=== PATIENT | female | born 1940 | race Caucasian/White ===

== ENCOUNTER 2018-04-11 11:22 | Emergency (ER) | payer MEDICARE ==
[~2018-04-11] VITALS: Ht 160 cm; Wt 94.3 kg
[~2018-04-11 11:22] MED LIST: ASPIR 8181 MG PO; BACTRIM DS TAB1 EACH PO; CALCIUM500 M1; CLONAZEPAM1 MG PO; DIOVAN160 MG PO; DIOVAN40 MG PO; ISOSORBIDE MONO30 MG PO; LASIX40 MG PO; LEVOTHYROXINE112 MCG PO; MAGNESIUM27 MG; METOPROLOL SUCC25 MG PO; PANTOPRAZOLE SO40 MG PO; POTASSIUM CHLO20 ME1 PO; SYNTHROID75 MCG PO; TYLENOL # 31 EA PO; ULTRAM50 MG PO
[2018-04-11] MEDS ORDERED: TRAMADOL HCL 50 MG TAB PO ONE (11:45)
== END 2018-04-11 14:06 | disposition home or self-care (01) ==
LOC: ER 11:22
DX: M79.652 Pain in left thigh (principal); S76.912A Strain of unspecified muscles, fascia and tendons at thigh level, left thigh, initial encounter; I10 Essential (primary) hypertension; K21.9 Gastro-esophageal reflux disease without esophagitis; G89.29 Other chronic pain; Z95.1 Presence of aortocoronary bypass graft
CPT/HCPCS: 93971; 99282

== ENCOUNTER 2019-03-28 05:10 | Observation (INO) | payer MEDICARE ==
[~2019-03-28] VITALS: Ht 160 cm; Wt 103.0 kg
--- OUTSIDE RECORDS SUMMARY | 2019-03-28 05:12 | XMS REPORT | Summary of Care ---
Author Author [facility] - Health Organization [facility] - Health Address Unknown Phone Unavailable Care Team Providers Care Tower Loader Operator Name Role Phone Alyssa Cullen MD PCP Encounter Details Care Team Description Date Type Department Doctor Unassigned, [place] [address] [place] [address] 11/05/2018 Patient Secure [facility] Messages Msg [address] [place] [phone] Allergies Comments Active Allergy Reactions Severity Noted Date Dry Mouth Lisinopril Other - See High 05/10/2018 comments documented as of this encounter (statuses as of 12/07/2018) Medications End Date Status Medication Sig Dispensed Refills Start Date Active gabapentin 300 mg capsule Take 600 mg 5 by mouth at 8 bedtime. Active pantoprazole 40 mg EC TK 1 T PO 3 tablet ONCE D 8 Active metoprolol succinate XL TK 1/2 T PO 3 25 mg 24 hr tablet ONCE D 8 Active isosorbide mononitrate 60 TK 1 T PO QD 3 mg 24 hr tablet 8 Active furosemide 40 mg tablet TK 1 T PO D 3 8 Active calcitriol 0.25 mcg TK 2 CS PO QD 0 capsule 8 Active aspirin (ASPIRIN LOW Take 81 mg by 0 DOSE) 81 mg EC tablet mouth daily. Active valsartan (DIOVAN) 40 mg Take 40 mg by 0 tablet mouth daily. Active calcium carbonate/vitamin Take by 0 D2 ([id number]-E ORAL) mouth. Active losartan potassium Take by 0 (LOSARTAN mouth. ORAL)Indications: Essential hypertension Active promethazine-dextromethor Take 5 mL by 0 mccann 6.25-15 mg/5 mL mouth 4 syrup (four) times daily as needed for Cough. Active methylPREDNISolone Take by 21 Each 0 (MEDROL, CLARISA,) 4 mg mouth 9 tabletsIndications: SEE-INSTRUCTI Bronchitis ONS. follow package directions Active rOPINIRole 0.5 mg Take 1 tablet 90 tablet 1 tabletIndications: by mouth at 9 Restless leg syndrome bedtime. Active VITAMIN K2 ORAL Take 1 tablet 0 by mouth daily. Active levothyroxine 112 mcg TAKE 1 TABLET 60 tablet 0 tablet BY MOUTH 9 EVERY MORNING ON AN EMPTY STOMACH WITH WATER, AND WAIT 1 HOUR BEFORE EATING OR TAKING OTHER MEDS documented as of this encounter (statuses as of 12/07/2018) Active Problems Not on filedocumented as of this encounter (statuses as of 12/07/2018) Social History Date Tobacco Use Types Packs/Day Years Used Never Smoker Smokeless Tobacco: Never Used Drinks/Week oz/Week Comments Alcohol Use Yes Sex Assigned at Date Recorded Not on file Industry Job Start Date Occupation Not on file Not on file Not on file Travel End Travel History Travel Start No recent travel history available. documented as of this encounter Last Filed Vital Signs Not on filedocumented in this encounter Plan of Treatment Health Maintenance Due Date Last Done Comments DTaP,Tdap,and Td Vaccines [birth year]/11/1959 (1 - Tdap) Zoster Recombinant 1990 Vaccine (SHINGRIX) (1 of 2) Medicare Wellness Visit 2005 Osteoporosis Screening 2005 PNEUMOCOCCAL VACCINES 65+ 2005 (1 of 2 - PCV13) INFLUENZA VACCINE 01/05/2019 documented as of this encounter Results Not on filedocumented in this encounter Insurance Type Payer Benefit Subscriber ID Effective Phone Address Plan / Dates Group Medicare Adv O [facility] [id number] 2018-P MANAGED MEDICARE MEDICARE resent COMPLETE documented as of this encounter
--- OUTSIDE RECORDS SUMMARY | 2019-03-28 05:12 | XMS REPORT | Summary of Care ---
Author Author [facility] - Health Organization [facility] - Health Address Unknown Phone Unavailable Care Team Providers Care Motorcycle Subassembler Name Role Phone Alyssa Cullen MD PCP Reason for Visit * Reason Comments Refill Request Encounter Details Care Team Description Date Type Department Alyssa Cullen MD [address] [place] [phone] Refill Request 12/01/2018 Refill [facility], [address] [place] [address] Allergies Comments Active Allergy Reactions Severity Noted Date Dry Mouth Lisinopril Other - See High 05/10/2018 comments documented as of this encounter (statuses as of 12/02/2018) Medications End Date Status Medication Sig Dispensed [...] Active calcium carbonate/vitamin Take by 0 D2 ([id number]-C ORAL) mouth. Active losartan potassium Take by 0 (LOSARTAN mouth. ORAL)Indications: Essential hypertension Active promethazine-dextromethor Take 5 mL by 0 cmcann 6.25-15 mg/5 mL mouth 4 syrup (four) [...] HOUR BEFORE EATING OR TAKING OTHER MEDS Active losartan 25 mg Take 1 tablet 30 tablet 1 tabletIndications: by mouth 9 Essential hypertension daily. Active POTASSIUM CHLORIDE 10 mEq TAKE 1 TABLET 30 tablet 0 CR tablet BY MOUTH 9 EVERY DAY 12/01/2018 Discontinued POTASSIUM CHLORIDE 10 mEq TAKE 1 TABLET 30 tablet 0 CR tablet BY MOUTH 9 EVERY DAY documented as of this encounter (statuses as of 12/02/2018) Active Problems Not on filedocumented as of this encounter (statuses as of 12/02/2018) Social History Date Tobacco Use Types Packs/Day [...] Address Plan / Dates Group Medicare Adv [facility] [id number] 2018-P MANAGED MEDICARE MEDICARE resent COMPLETE documented as of this encounter
--- OUTSIDE RECORDS SUMMARY | 2019-03-28 05:12 | XMS REPORT | Summary of Care ---
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 P rocedures CONSULT/REFERRAL CARDIOLOGY Reason for Visit * Reason Comments Referral/consult Encounter Details Care Team Description Date Type Department Alyssa Cullen MD [address] [place] [phone] Referral/consult 12/18/2018 Telephone [facility], [address] [phone] Allergies Comments Active Allergy Reactions Severity Noted Date Dry Mouth Lisinopril Other - See High 05/10/2018 comments documented as of this encounter (statuses as of 12/18/2018) Medications End Date Status Medication Sig Dispensed [...] Active calcium carbonate/vitamin Take by 0 D2 ([id number]-L ORAL) mouth. Active losartan potassium Take by [...] as of this encounter (statuses as of 12/18/2018) Active Problems Not on filedocumented as of this encounter (statuses as of 12/18/2018) Social History Date Tobacco Use Types Packs/Day [...] filedocumented in this encounter Plan of Treatment Care Team Description Date Type Specialty Alyssa Cullen MD [address] [address] [phone] 01/10/2019 Office Visit Family Medicine Health Maintenance Due Date Last Done Comments DTaP,Tdap,and Td Vaccines 12/11/1959 (1 - Tdap) Zoster Recombinant 1990 Vaccine (SHINGRIX) (1 of 2) Medicare Wellness Visit 2005 Osteoporosis Screening 2005 PNEUMOCOCCAL VACCINES 65+ 2005 (1 of 2 - PCV13) INFLUENZA VACCINE 01/05/2019 documented as of this encounter Results Not on filedocumented in this encounter Visit Diagnoses Diagnosis Atherosclerosis of [place] coronary artery with angina pectoris, 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
--- OUTSIDE RECORDS SUMMARY | 2019-03-28 05:12 | XMS REPORT ---
Author Author [facility] Address Unknown Phone Unavailable Care Team Providers Care Hedis Registered Nurse Rn Name Role Phone Unavailable Unavailable Problems This patient has no known problems. Allergies, Adverse Reactions, Alerts This patient has no known allergies or adverse reactions. Medications This patient has no known medications.
--- OUTSIDE RECORDS SUMMARY | 2019-03-28 05:12 | XMS REPORT | Summary of Care ---
Author Author [facility] - Health Organization [facility] - Health Address Unknown Phone Unavailable Care Team Providers Care Assistant District Attorney Name Role Phone Alyssa Cullen MD PCP Reason for Visit * Reason Comments Refill Request Encounter Details Care Team Description Date Type Department Alyssa Cullen MD [address] [place] [phone] Refill Request 12/24/2018 Telephone [facility], [address] [place] [address] Allergies Comments Active Allergy Reactions Severity Noted Date Dry Mouth Lisinopril Other - See High 05/10/2018 comments documented as of this encounter (statuses as of 12/24/2018) Medications End Date Status Medication Sig Dispensed [...] Active calcium carbonate/vitamin Take by 0 D2 ([id number]-B ORAL) mouth. Active losartan potassium Take by [...] 1 tablet 0 by mouth daily. Active losartan 25 mg Take 1 tablet 30 tablet 1 tabletIndications: by mouth 9 Essential hypertension daily. Active POTASSIUM CHLORIDE 10 mEq TAKE 1 TABLET 30 tablet 0 CR tablet BY MOUTH 9 EVERY DAY Active levothyroxine 112 mcg TAKE 1 TABLET 90 tablet 0 tablet BY MOUTH 9 EVERY MORNING ON AN EMPTY STOMACH WITH WATER, AND WAIT 1 HOUR BEFORE EATING OR TAKING OTHER MEDS 12/24/2018 Discontinued levothyroxine 112 mcg TAKE 1 TABLET 60 tablet 0 tablet BY MOUTH 9 EVERY MORNING ON AN EMPTY STOMACH WITH WATER, AND WAIT 1 HOUR BEFORE EATING OR TAKING OTHER MEDS documented as of this encounter (statuses as of 12/24/2018) Active Problems Not on filedocumented as of this encounter (statuses as of 12/24/2018) Social History Date Tobacco Use Types Packs/Day [...] Description Date Type Specialty Alyssa Cullen MD [address] [place] [phone] 01/10/2019 Office Visit Family Medicine Health Maintenance Due Date Last Done Comments DTaP,Tdap,and Td Vaccines 12/11/1959 (1 - Tdap) Zoster Recombinant 1990 Vaccine (SHINGRIX) (1 of 2) Medicare Wellness Visit 2005 Osteoporosis Screening 2005 PNEUMOCOCCAL VACCINES 65+ 2005 (1 of 2 - PCV13) INFLUENZA VACCINE (#1) 2019 documented as of this encounter Results Not on filedocumented in this encounter Insurance Type Payer Benefit Subscriber ID Effective Phone Address Plan / Dates Group Medicare Adv O [facility] - [facility] [id number] 2018-P MANAGED MEDICARE MEDICARE resent COMPLETE documented as of this encounter
--- OUTSIDE RECORDS SUMMARY | 2019-03-28 05:13 | XMS REPORT | Summary of Care ---
Author Author [facility] Address Unknown Phone Unavailable Care Team Providers Care Assembler [place] [employer] [place] Name Role Phone Alyssa Cullen MD PCP Reason for Visit * Reason Comments Pain Encounter Details Care Team Description Date Type Department Alyssa Cullen MD [address] [facility] [address] [place] [address] [phone] Restless leg syndrome (Primary Dx); Motion sickness, initial encounter; Diarrhea, unspecified type; Acquired hypothyroidism 01/10/2019 Office Visit [facility] [address] [facility] [address] [place] [address] Allergies Comments Active Allergy Reactions Severity Noted Date Dry Mouth Lisinopril Other - See High 05/10/2018 comments documented as of this encounter (statuses as of 01/12/2019) Medications End Date Status Medication Sig Dispensed [...] Active calcium carbonate/vitamin Take by 0 D2 ([id number]-T ORAL) mouth. Active losartan potassium Take by 0 (LOSARTAN mouth. ORAL)Indications: Essential hypertension Active promethazine-dextromethor Take 5 mL by 0 mccann 6.25-15 mg/5 mL mouth 4 syrup (four) times daily as needed for Cough. Active methylPREDNISolone Take by 21 Each 0 (MEDROL, CLARISA,) 4 mg mouth 9 tabletsIndications: SEE-INSTRUCTI Bronchitis ONS. follow package directions Active VITAMIN K2 ORAL Take 1 tablet 0 by mouth daily. Active losartan 25 mg Take 1 tablet 30 tablet 1 tabletIndications: by mouth 9 Essential hypertension daily. Active levothyroxine 112 mcg TAKE 1 TABLET 90 tablet 0 tablet BY MOUTH 9 EVERY MORNING ON AN EMPTY STOMACH WITH WATER, AND WAIT 1 HOUR BEFORE EATING OR TAKING OTHER MEDS Active POTASSIUM CHLORIDE 10 mEq TAKE 1 TABLET 30 tablet 0 CR tablet BY MOUTH 9 EVERY DAY Active ergocalciferol, vitamin Take 4,000 0 D2, (VITAMIN D ORAL) Units by mouth daily. Active scopolamine transdermal 1 Apply 1 Patch 4 Patch 0 mg over 3 days to area(s) 9 patchIndications: Motion every 72 sickness, initial (seventy-two) encounter hours. Active rOPINIRole 0.5 mg 2 tablets 1-3 90 tablet 0 tabletIndications: hrs prior to 9 Restless leg syndrome bedtime x 7 days then if needed can go up weekly by 0.5 mg until desired effect or she reaches 3 mg. Active imipramine 25 mg Take 1 tablet 30 tablet 2 tabletIndications: by mouth 9 Diarrhea, unspecified daily. type 01/10/2019 Discontinued rOPINIRole 0.5 mg Take 1 tablet 90 tablet 1 tabletIndications: by mouth at 9 Restless leg syndrome bedtime. documented as of this encounter (statuses as of 01/12/2019) Active Problems Not on filedocumented as of this encounter (statuses as of 01/12/2019) Social History Date Tobacco Use Types Packs/Day Years Used Never Smoker Smokeless Tobacco: Never Used Drinks/Week oz/Week Comments Alcohol Use Yes Sex Assigned at Date Recorded Not on file Industry Job Start Date Occupation Not on file Not on file Not on file Travel End Travel History Travel Start No recent travel history available. documented as of this encounter Last Filed Vital Signs Reading Time Taken Comments Vital Sign 134/82 01/10/2019 3:42 PM CDT Blood Pressure 64 01/10/2019 3:42 PM CDT Pulse - - Temperature - - Respiratory Rate 99% 01/10/2019 3:42 PM CDT Oxygen Saturation - - Inhaled Oxygen Concentration 103.1 kg (227 lb 3.2 oz) 01/10/2019 3:42 PM CDT Weight - - Height 42.58 09/17/2018 2:02 PM CDT Body Mass Index documented in this encounter Progress Notes * Alyssa Cullen MD - 01/10/2019 3:00 PM CDT Cc: Chief Complaint Patient presents with Pain Amaris Camargo is a 78 year old female. HPI She is going on a cruise in February and is requesting motion sickness pills. Patient states that for years she has had issues with on and off diarrhea . But lately she has had issues with random unprovoked episodes of diarrhea that she has no control over. In both ears she has had a constant swooshing sound for [address] Peterson stopped her calcitriol. she is now taking Calcium 1800 mg and vitamin D 4000 iu. Patient states that her calcium level is low. Patient states that chung ving bone and muscle achiness, slight better when she re-started her calcium sup plement. Check how much parathyroid she has left. Neuropathy pain comes and goes in degrees. ropiranole will help. Patient states she has a tightening of the throat. Makes it hard to move her jaw . She denies any shortness of breath. She has itching under her underarm. Patient states that has bumps and itching i n groin. Patient states on and off. Patient saw Dr. Vargas. She is setting her up for a Nuclear stress test and Ec hocardiogram. Stress test will be done after she returns from her cruise. Allergies Amaris is allergic to lisinopril. Medications Outpatient Medications Prior to Visit Medication Sig Dispense Refill ergocalciferol, vitamin D2, (VITAMIN D ORAL) Take 4,000 Units by mouth daily . POTASSIUM CHLORIDE 10 mEq CR tablet TAKE 1 TABLET BY MOUTH EVERY DAY 30 tabl et 0 levothyroxine 112 mcg tablet TAKE 1 TABLET BY MOUTH EVERY MORNING ON AN EMPT Y STOMACH WITH WATER, AND WAIT 1 HOUR BEFORE EATING OR TAKING OTHER MEDS 90 tabl et 0 losartan 25 mg tablet Take 1 tablet by mouth daily. 30 tablet 1 VITAMIN K2 ORAL Take 1 tablet by mouth daily. rOPINIRole 0.5 mg tablet Take 1 tablet by mouth at bedtime. 90 tablet 1 aspirin (ASPIRIN LOW DOSE) 81 mg EC tablet Take 81 mg by mouth daily. furosemide 40 mg tablet TK 1 T PO D 3 gabapentin 300 mg capsule Take 600 mg by mouth at bedtime. 5 isosorbide mononitrate 60 mg 24 hr tablet TK 1 T PO QD 3 metoprolol succinate XL 25 mg 24 hr tablet TK 1/2 T PO ONCE D 3 pantoprazole 40 mg EC tablet TK 1 T PO ONCE D 3 methylPREDNISolone (MEDROL, CLARISA,) 4 mg tablets Take by mouth SEE-INSTRUCTIO NS. follow package directions 21 Each 0 promethazine-dextromethorphan 6.25-15 mg/5 mL syrup Take 5 mL by mouth 4 (fo ur) times daily as needed for Cough. losartan potassium (LOSARTAN ORAL) Take by mouth. calcitriol 0.25 mcg capsule TK 2 CS PO QD 0 calcium carbonate/vitamin D2 ([id number]-A ORAL) Take by mouth. valsartan (DIOVAN) 40 mg tablet Take 40 mg by mouth daily. No facility-administered medications prior to visit. Current Outpatient Medications: ergocalciferol, vitamin D2, (VITAMIN D ORAL), Take 4,000 Units by mouth mag parekh, Disp: , Rfl: scopolamine transdermal 1 mg over 3 days patch, Apply 1 Patch to area(s) ev massiel 72 (seventy-two) hours., Disp: 4 Patch, Rfl: 0 POTASSIUM CHLORIDE 10 mEq CR tablet, TAKE 1 TABLET BY MOUTH EVERY DAY, Disp : 30 tablet, Rfl: 0 levothyroxine 112 mcg tablet, TAKE 1 TABLET BY MOUTH EVERY MORNING ON AN EM PTY STOMACH WITH WATER, AND WAIT 1 HOUR BEFORE EATING OR TAKING OTHER MEDS, Disp : 90 tablet, Rfl: 0 losartan 25 mg tablet, Take 1 tablet by mouth daily., Disp: 30 tablet, Rfl: 1 VITAMIN K2 ORAL, Take 1 tablet by mouth daily., Disp: , Rfl: rOPINIRole 0.5 mg tablet, Take 1 tablet by mouth at bedtime., Disp: 90 tabl et, Rfl: 1 aspirin (ASPIRIN LOW DOSE) 81 mg EC tablet, Take 81 mg by mouth daily., Dis p: , Rfl: furosemide 40 mg tablet, TK 1 T PO D, Disp: , Rfl: 3 gabapentin 300 mg capsule, Take 600 mg by mouth at bedtime., Disp: , Rfl: 5 isosorbide mononitrate 60 mg 24 hr tablet, TK 1 T PO QD, Disp: , Rfl: 3 metoprolol succinate XL 25 mg 24 hr tablet, TK 1/2 T PO ONCE D, Disp: , Rfl : 3 pantoprazole 40 mg EC tablet, TK 1 T PO ONCE D, Disp: , Rfl: 3 methylPREDNISolone (MEDROL, CLARISA,) 4 mg tablets, Take by mouth SEE-INSTRUCT IONS. follow package directions, Disp: 21 Each, Rfl: 0 promethazine-dextromethorphan 6.25-15 mg/5 mL syrup, Take 5 mL by mouth 4 ( four) times daily as needed for Cough., Disp: , Rfl: losartan potassium (LOSARTAN ORAL), Take by mouth., Disp: , Rfl: calcitriol 0.25 mcg capsule, TK 2 CS PO QD, Disp: , Rfl: 0 calcium carbonate/vitamin D2 ([id number]-331-T ORAL), Take by mouth., Disp: , Rfl: valsartan (DIOVAN) 40 mg tablet, Take 40 mg by mouth daily., Disp: , Rfl: Histories Past Medical History: Diagnosis Date B12 deficiency CHF (congestive heart failure) Coronary artery disease Diverticulosis Gallstones Heart murmur Hypertension Hypothyroid Insomnia Internal hemorrhoids Meniere's disease Past Surgical History: Procedure Laterality Date D&C AFTER DELIVERY THYROIDECTOMY Social History Socioeconomic History Marital status: Spouse name: Not on file Number of children: Not on file Years of education: Not on file Highest education level: Not on file Occupational History Not on file Social Needs Financial resource strain: Not on file Food insecurity: Worry: Not on file Inability: Not on file Transportation needs: Medical: Not on file Non-medical: Not on file Tobacco Use Smoking status: Never Smoker Smokeless tobacco: Never Used Substance and Sexual Activity Alcohol use: Yes Drug use: No Sexual activity: Never Lifestyle Physical activity: Days per week: Not on file Minutes per session: Not on file Stress: Not on file Relationships Social connections: Talks on phone: Not on file Gets together: Not on file Attends jain service: Not on file Active member of club or organization: Not on file Attends meetings of clubs or organizations: Not on file Relationship status: Not on file Intimate partner violence: Fear of current or ex partner: Not on file Emotionally abused: Not on file Physically abused: Not on file Forced sexual activity: Not on file Other Topics Concern Not on file Social History Narrative Not on file Family History Problem Relation Age of Onset Diabetes Mother Hypertension Mother Heart Mother TIA Depression Mother Hypertension Father Diabetes Father Heart Father Review of Systems Constitutional: Negative. Cardiovascular: Negative. Gastrointestinal: Positive for abdominal pain and diarrhea. Genitourinary: Negative. Musculoskeletal: Positive for arthralgias and myalgias. Negative for neck pain. Skin: Positive for rash. Neurological: Positive for numbness. Negative for headaches. Restless legs Psychiatric/Behavioral: Positive for sleep disturbance. Endocrine: Endocrine negative Vital Signs BP 134/82 (BP Location: Left arm, Patient Position: Sitting) | Pulse 64 | Wt 2 27 lb 3.2 oz (103.1 kg) | SpO2 99% | BMI 42.58 kg/m Physical Exam Constitutional: She appears well-developed and well-nourished. HENT: Right Ear: External ear normal. Left Ear: External ear normal. Mouth/Throat: Oropharynx is clear and moist. Eyes: Conjunctivae are normal. Neck: Neck supple. Cardiovascular: Normal rate, regular rhythm and normal heart sounds. Pulmonary/Chest: Effort normal and breath sounds normal. No respiratory distress . Musculoskeletal: Normal range of motion. Lymphadenopathy: She has no cervical adenopathy. Neurological: She is alert. Vitals reviewed. Assessment/Plan 1. Restless leg syndrome Will increase and maximize patients Ropinirole. If this doesn't help we may nee d to increase her gabapentin. - rOPINIRole 0.5 mg tablet; 2 tablets 1-3 hrs prior to bedtime x 7 days then if needed can go up weekly by 0.5 mg until desired effect or she reaches 3 mg. Dis pense: 90 tablet; Refill: 0 2. Motion sickness, initial encounter - scopolamine transdermal 1 mg over 3 days patch; Apply 1 Patch to area(s) every 72 (seventy-two) hours. Dispense: 4 Patch; Refill: 0 3. Diarrhea, unspecified type Will try patient on Imipramine for the diarrhea and will check her blood work to make sure her diarrhea is not metabolically induced. Review of her labs show t hat all her labs are essentially normal. - imipramine 25 mg tablet; Take 1 tablet by mouth daily. Dispense: 30 tablet; R efill: 2 - CBC WITH DIFFERENTIAL - COMP. METABOLIC PANEL (67227) - LIPASE 4. Acquired hypothyroidism In september her levels were in the hyperthyroid side which can cause diarrhea, repeat shows normal value. - FREE T4 - THYROID STIMULATING HORMONE This visit did not involve counseling and coordination that comprised more than 50% of the visit time. documented in this encounter Plan of Treatment Care Team Description Date Type Specialty Alyssa Cullen MD [address] [place] [address] [phone] 07/11/2019 Office Visit Family Medicine Health Maintenance Due Date Last Done Comments DTaP,Tdap,and Td Vaccines 12/11/1959 (1 - Tdap) Zoster Recombinant 1990 Vaccine (SHINGRIX) (1 of 2) Medicare Wellness Visit 2005 Osteoporosis Screening 2005 PNEUMOCOCCAL VACCINES 65+ 2005 (1 of 2 - PCV13) INFLUENZA VACCINE (#1) 2019 documented as of this encounter Procedures Comments Procedure Name Priority Date/Time Associated Diagnosis CBC WITH DIFFERENTIAL Routine 01/10/2019 Diarrhea, unspecified 5:21 PM CDT type COMP. METABOLIC PANEL Routine 01/10/2019 Diarrhea, unspecified (77343) 5:21 PM CDT type THYROID STIMULATING Routine 01/10/2019 Acquired hypothyroidism HORMONE 5:21 PM CDT FREE T4 Routine 01/10/2019 Acquired hypothyroidism 5:21 PM CDT LIPASE Routine 01/10/2019 Diarrhea, unspecified 5:21 PM CDT type documented in this encounter Results * LIPASE (01/10/2019 5:21 PM CDT) LIPASE 42 0 - 220 U/L [facility] Specimen Blood - ARM, RIGHT Performing Organization Address City/[facility]/Zipcode Phone Number [facility] CLIA: [id number], [address] [place] [address] [facility] * THYROID STIMULATING HORMONE (01/10/2019 5:21 PM CDT) TSH 1.88 0.45 - 4.70 mIU/L [facility] Specimen Blood - ARM, RIGHT Performing Organization Address City/State/Zipcode Phone Number [facility] CLIA: [id number], [address] [place] [address] [facility] * FREE T4 (01/10/2019 5:21 PM CDT) FREE T4 1.34 0.78 - 2.20 ng/dL: [facility] Specimen Blood - ARM, RIGHT Performing Organization Address City/[facility]/Zipcode Phone Number [facility] CLIA: [id number], [address] [place] [id number] * COMP. METABOLIC PANEL (93871) (01/10/2019 5:21 PM CDT) NA 143 135 - 145 mmol/L [facility] K 4.4 3.5 - 5.0 mmol/L [facility] CL 102 98 - 108 mmol/L [facility] CO2 TOTAL 30 23 - 31 mmol/L [facility] AGAP 11 2 - 16 [facility] BUN 37 (H) 7 - 23 mg/dL [facility] GLUCOSE 107 70 - 110 mg/dL [facility] CREATININE 1.25 (H) 0.50 - 1.04 mg/dL [facility] TOTAL BILI 0.6 0.1 - 1.1 mg/dL [facility] CALCIUM 8.2 (L) 8.6 - 10.6 mg/dL [facility] T PROTEIN 7.6 6.3 - 8.2 g/dL [facility] ALBUMIN 4.2 3.5 - 5.0 g/dL [facility] ALK PHOS 70 34 - 122 U/L [facility] ALT(SGPT) 19 9 - 51 U/L [facility] AST(SGOT) 27 13 - 40 U/L [facility] eGFR 41.4 mL/min/1.73m2 [facility] Calculation [facility] (Non-[facility]) eGFR 50.2 mL/min/1.73m2 [facility] Calculation [facility] ([facility]) Specimen Blood - ARM, RIGHT Narrative Performed At Association of Glomerular Filtration Rate (GFR) and Staging of Kidney Disease* [facility] + + + + [facility] | GFR (mL/min/1.73 m2)| With Kidney Damage|Without Kidney Damage CAMPUS + + + + |>90|Stage one| Normal + + + + |60-89|Stage two| Decreased GFR + + + + |30-59|Stage three| Stage three + + + + |15-29|Stage four | Stage four + + + + |<15 (or dialysis)|Stage five | Stage five + + + + *Each stage assumes the associated GFR level has been in effect for at least three months.Stages 1 to 5, with or without kidney disease, indicate chronic kidney disease. Notes: Determination of stages one and two (with eGFR >59mL/min/1.73 m2) requires estimation of kidney damage for at least three months as defined by structural or functional abnormalities of the kidney, manifested by either: Pathological abnormalities or Markers of kidney damage (including abnormalities in the composition of the blood or urine or abnormalities in imaging tests). Performing Organization Address City/State/Zipcode Phone Number [facility] CLIA: [id number], [address] [place] [address] [facility] * CBC WITH DIFFERENTIAL (01/10/2019 5:21 PM CDT) WBC 8.27 4.30 - 11.10 [facility] 10*3/L [facility] RBC 4.34 3.93 - 5.25 10*6/L [facility] HGB 12.4 11.6 - 15.0 g/dL [facility] HCT 38.6 35.7 - 45.2 % [facility] MCV 88.9 80.6 - 95.5 fL [facility] MCH 28.6 25.9 - 32.8 pg [facility] MCHC 32.1 31.6 - 35.1 g/dL [facility] RDW-SD 44.2 39.0 - 49.9 fL [facility] RDW-CV 13.5 12.0 - 15.5 % [facility] PLT 310 166 - 358 10*3/L [facility] MPV 10.9 9.5 - 12.9 fL [facility] NRBC/100 WBC 0.0 0.0 - 10.0 /100 WBCs [facility] NRBC x10^3 <0.01 10*3/L [facility] GRAN MAT (NEUT) 64.0 % [facility] IMM GRAN % 0.40 % [facility] LYMPH % 21.3 % [facility] MONO % 9.2 % [facility] EOS % 4.0 % [facility] BASO % 1.1 % [facility] GRAN MAT 5.30 1.88 - 7.09 10*3/uL [facility] x10^3(ANC) [facility] IMM GRAN x10^3 0.03 0.00 - 0.06 10*3/uL [facility] LYMPH x10^3 1.76 1.32 - 3.29 10*3/uL [facility] MONO x10^3 0.76 0.33 - 0.92 10*3/uL [facility] EOS x10^3 0.33 0.03 - 0.39 10*3/uL [facility] BASO x10^3 0.09 (H) 0.01 - 0.07 10*3/uL [facility] Specimen Blood - ARM, RIGHT Performing Organization Address City/State/Zipcode Phone Number [facility] CLIA: [id number], [address] [place] [address] [facility] documented in this encounter Visit Diagnoses Diagnosis Restless leg syndrome - Primary Restless legs syndrome (RLS) Motion sickness, initial encounter Diarrhea, unspecified type Acquired hypothyroidism Unspecified hypothyroidism documented in this encounter Insurance Type Payer Benefit Subscriber ID Effective Phone Address Plan / Dates Group Medicare Adv HMO [employer] [id number] 2018-P MANAGED MEDICARE MEDICARE resent COMPLETE documented as of this encounter"
--- OUTSIDE RECORDS SUMMARY | 2019-03-28 05:13 | XMS REPORT | Summary of Care ---
Author Author [facility] - Health Organization [facility] - Health Address Unknown Phone Unavailable Care Team Providers Care Skein Bander Name Role Phone Alyssa Cullen MD PCP Reason for Visit * Reason Comments Refill Request Encounter Details Care Team Description Date Type Department Alyssa Cullen MD [address] [place] [address] [phone] Refill Request 01/01/2019 Refill [facility], [address] [place] [address] Allergies Comments Active Allergy Reactions Severity Noted Date Dry Mouth Lisinopril Other - See High 05/10/2018 comments documented as of this encounter (statuses as of 01/01/2019) Medications End Date Status Medication Sig Dispensed [...] Active calcium carbonate/vitamin Take by 0 D2 ([id number]-X ORAL) mouth. Active losartan potassium Take by [...] CR tablet BY MOUTH 9 EVERY DAY 01/01/2019 Discontinued POTASSIUM CHLORIDE 10 mEq TAKE 1 TABLET 30 tablet 0 CR tablet BY MOUTH 9 EVERY DAY documented as of this encounter (statuses as of 01/01/2019) Active Problems Not on filedocumented as of this encounter (statuses as of 01/01/2019) Social History Date Tobacco Use Types Packs/Day [...] Description Date Type Specialty Alyssa Cullen MD [address] [place] [address] [phone] 01/10/2019 Office Visit Family Medicine Health Maintenance [...] Address Plan / Dates Group Medicare Adv [facility] [id number] 2018-P MANAGED MEDICARE MEDICARE resent COMPLETE documented as of this encounter
--- OUTSIDE RECORDS SUMMARY | 2019-03-28 05:13 | XMS REPORT | Summary of Care ---
Author Author [facility] - Health Organization [facility] - Health Address Unknown Phone Unavailable Care Team Providers Care Aerial Gunner Name Role Phone Alyssa Cullen MD PCP Reason for Visit * Reason Comments Refill Request Encounter Details Care Team Description Date Type Department Alyssa Cullen MD [address] [id number] Refill Request 01/11/2019 Refill [facility] [address] [phone] Allergies Comments Active Allergy Reactions Severity Noted Date Dry Mouth Lisinopril Other - See High 05/10/2018 comments documented as of this encounter (statuses as of 01/16/2019) Medications End Date Status Medication Sig Dispensed [...] Active calcium carbonate/vitamin Take by 0 D2 ([id number]-454-U ORAL) mouth. Active losartan potassium Take by [...] 72 sickness, initial (seventy-two) encounter hours. Active imipramine 25 mg Take 1 tablet 30 tablet 2 tabletIndications: by mouth 9 Diarrhea, unspecified daily. type Active rOPINIRole 0.5 mg TAKE 2 270 tablet 0 tabletIndications: TABLETS BY 9 Restless leg syndrome MOUTH 1 TO 3 HOURS BEFORE BEDTIME X 7 DAYS. THEN YOU CAN INCREASE DOSE BY 0.5 MG UNTIL DESIRED EFFECT OR YOU REACH 3 MG 01/11/2019 Discontinued rOPINIRole 0.5 mg 2 tablets 1-3 90 tablet 0 tabletIndications: hrs prior to 9 Restless leg syndrome bedtime x 7 days then if needed can go up weekly by 0.5 mg until desired effect or she reaches 3 mg. documented as of this encounter (statuses as of 01/16/2019) Active Problems Not on filedocumented as of this encounter (statuses as of 01/16/2019) Social History Date Tobacco Use Types Packs/Day [...] Description Date Type Specialty Alyssa Cullen MD [address] [place] [address] [address] [place] [address] [phone] 07/11/2019 Office Visit Family Medicine Health Maintenance Due Date Last Done Comments DTaP,Tdap,and Td Vaccines 12/11/1959 (1 - Tdap) Zoster Recombinant 1990 Vaccine (SHINGRIX) (1 of 2) Medicare Wellness Visit 2005 Osteoporosis Screening 2005 PNEUMOCOCCAL VACCINES 65+ 2005 (1 of 2 - PCV13) INFLUENZA VACCINE (#1) 2019 documented as of this encounter Results Not on filedocumented in this encounter Visit Diagnoses Diagnosis Restless leg syndrome Restless legs syndrome (RLS) documented in this encounter Insurance Type Payer Benefit Subscriber ID Effective Phone Address Plan / Dates Group Medicare Adv [facility] [id number] 2018-P MANAGED MEDICARE MEDICARE resent COMPLETE documented as of this encounter
--- OUTSIDE RECORDS SUMMARY | 2019-03-28 05:13 | XMS REPORT | Summary of Care ---
Author Author [facility] - Health Organization [facility] - Health Address Unknown Phone Unavailable Care Team Providers Care Ton Container Shipper Name Role Phone Alyssa Cullen MD PCP Reason for Referral * (Routine) Referred By Contact Referred To Contact Status Reason Specialty Diagnoses / Procedures Alyssa Cullen MD [address] [place] [address] New Request Orthopedic Diagnoses Surgery Chronic knee pain, unspecified laterality P rocedures CONSULT/REFERRAL ORTHOPAEDIC SURGERY Reason for Visit * Reason Comments Referral/consult Encounter Details Care Team Description Date Type Department Alyssa Cullen MD [address] [facility] [address] [place] [address] Referral/consult 01/16/2019 Telephone [facility] [facility] [address] [phone] Allergies Comments Active Allergy Reactions Severity Noted Date Dry Mouth Lisinopril Other - See High 05/10/2018 comments documented as of this encounter (statuses as of 01/20/2019) Medications End Date Status Medication Sig Dispensed [...] Active calcium carbonate/vitamin Take by 0 D2 ([id number]-E ORAL) mouth. Active losartan potassium Take by [...] DESIRED EFFECT OR YOU REACH 3 MG documented as of this encounter (statuses as of 01/20/2019) Active Problems Not on filedocumented as of this encounter (statuses as of 01/20/2019) Social History Date Tobacco Use Types Packs/Day [...] Date Type Specialty Alyssa Cullen MD 250 [facility] 400 [place] [address] [phone] 07/11/2019 Office Visit Family Medicine Health Maintenance Due Date Last Done Comments DTaP,Tdap,and Td Vaccines 12/11/1959 (1 - Tdap) Zoster Recombinant 1990 Vaccine (SHINGRIX) (1 of 2) Medicare Wellness Visit 2005 Osteoporosis Screening 2005 PNEUMOCOCCAL VACCINES 65+ 2005 (1 of 2 - PCV13) INFLUENZA VACCINE (#1) 2019 documented as of this encounter Results Not on filedocumented in this encounter Visit Diagnoses Diagnosis Chronic knee pain, unspecified laterality - Primary documented in this encounter Insurance Type Payer Benefit Subscriber ID Effective Phone Address Plan / Dates Group Medicare Adv O [facility] - AARP [id number] 2018-P MANAGED MEDICARE MEDICARE resent COMPLETE documented as of this encounter
--- OUTSIDE RECORDS SUMMARY | 2019-03-28 05:13 | XMS REPORT | Summary of Care ---
Author Author [facility] - Health Organization [facility] - Health Address Unknown Phone Unavailable Care Team Providers Care Pouch Maker Name Role Phone Alyssa Cullen MD PCP Reason for Visit * Reason Comments Referral/consult Encounter Details Care Team Description Date Type Department Alyssa Cullen MD [address] [id number] Referral/consult 01/16/2019 Telephone [facility] 2660 [facility] 3 [place] [phone] Allergies Comments Active Allergy Reactions [...] Active calcium carbonate/vitamin Take by 0 D2 ([id number]-762-G ORAL) mouth. Active losartan potassium Take by [...] Date Type Specialty Alyssa Cullen MD [address] [address] [phone] 07/11/2019 Office Visit Family Medicine Health Maintenance [...] Plan / Dates Group Medicare Adv O [facility] - AARP [id number] 2018-P MANAGED MEDICARE MEDICARE resent COMPLETE documented as of this encounter
--- OUTSIDE RECORDS SUMMARY | 2019-03-28 05:13 | XMS REPORT | Summary of Care ---
Author Author [facility] - Health Organization [facility] - Health Address Unknown Phone Unavailable Care Team Providers Care Software Configuration Engineer Name Role Phone Alyssa Cullen MD PCP Encounter Details Care Team Description Date Type Department Doctor Unassigned, [place] [address] [place] [address] 01/10/2019 Orders Only [address] [address] Allergies Comments Active Allergy Reactions Severity Noted Date Dry Mouth Lisinopril Other - See High 05/10/2018 comments documented as of this encounter (statuses as of 01/10/2019) Medications End Date Status Medication Sig Dispensed [...] Active calcium carbonate/vitamin Take by 0 D2 ([id number]-858-H ORAL) mouth. Active losartan potassium Take by [...] as of this encounter (statuses as of 01/10/2019) Active Problems Not on filedocumented as of this encounter (statuses as of 01/10/2019) Social History Date Tobacco Use Types Packs/Day [...] Comments Procedure Name Priority Date/Time Associated Diagnosis NO SHOW OR MISSED Routine 01/10/2019 APPOINTMENT POLICY 3:15 PM CDT ACKNOWLEDGEMENT documented in this encounter Results Not on filedocumented in this encounter Insurance Type Payer Benefit Subscriber ID Effective Phone Address Plan / Dates Group Medicare Adv [facility] [id number] 2018-P MANAGED MEDICARE MEDICARE resent COMPLETE documented as of this encounter
--- OUTSIDE RECORDS SUMMARY | 2019-03-28 05:13 | XMS REPORT | Summary of Care ---
Author Author [facility] - Health Organization [facility] - Health Address Unknown Phone Unavailable Care Team Providers Care Campus Security Director Name Role Phone Alyssa Cullen MD PCP Reason for Visit * Reason Comments Refill Request Encounter Details Care Team Description Date Type Department Alyssa Cullen MD [address] [phone] Refill Request 01/11/2019 Refill [facility] [address] [phone] Allergies Comments Active Allergy Reactions Severity Noted Date Dry Mouth Lisinopril Other - See High 05/10/2018 comments documented as of this encounter (statuses as of 01/13/2019) Medications End Date Status Medication Sig Dispensed [...] Active calcium carbonate/vitamin Take by 0 D2 ([id number]-243-Z ORAL) mouth. Active losartan potassium Take by [...] as of this encounter (statuses as of 01/13/2019) Active Problems Not on filedocumented as of this encounter (statuses as of 01/13/2019) Social History Date Tobacco Use Types Packs/Day [...] Description Date Type Specialty Alyssa Cullen MD [address] [place] [address] [address] [place] [address] [phone] 07/11/2019 Office Visit Family Medicine Health Maintenance [...] Address Plan / Dates Group Medicare Adv [facility] [id number] 2018-P MANAGED MEDICARE MEDICARE resent COMPLETE documented as of this encounter
--- OUTSIDE RECORDS SUMMARY | 2019-03-28 05:13 | XMS REPORT | Summary of Care ---
Author Author [facility] - Health Organization [facility] - Health Address Unknown Phone Unavailable Care Team Providers Care Faith Doctor Name Role Phone Alyssa Cullen MD PCP Reason for Visit * Reason Comments Refill Request Encounter Details Care Team Description Date Type Department Alyssa Cullen MD [address] [address] Refill Request 01/11/2019 Refill [facility] [address] [phone] Allergies Comments Active Allergy Reactions Severity Noted Date Dry Mouth Lisinopril Other - See High 05/10/2018 comments documented as of this encounter (statuses as of 01/14/2019) Medications End Date Status Medication Sig Dispensed [...] Active calcium carbonate/vitamin Take by 0 D2 ([id number]-880-V ORAL) mouth. Active losartan potassium Take by [...] as of this encounter (statuses as of 01/14/2019) Active Problems Not on filedocumented as of this encounter (statuses as of 01/14/2019) Social History Date Tobacco Use Types Packs/Day [...] Description Date Type Specialty Alyssa Cullen MD [address] [place] [address] [address] [place] [address] [phone] 07/11/2019 Office Visit Family Medicine Health Maintenance [...] Address Plan / Dates Group Medicare Adv [facility] [id number] 2018-P MANAGED MEDICARE MEDICARE resent COMPLETE documented as of this encounter
--- OUTSIDE RECORDS SUMMARY | 2019-03-28 05:13 | XMS REPORT | Summary of Care ---
Author Author [facility] - Health Organization [facility] - Health Address Unknown Phone Unavailable Care Team Providers Care Software Support Representative Name Role Phone Alyssa Cullen MD PCP Reason for Visit * Reason Comments Pain Encounter Details Care Team Description Date Type Department Alyssa Cullen MD 250 [facility] [address] [place] [address] [phone] Restless leg syndrome (Primary Dx); Motion sickness, initial encounter; Diarrhea, unspecified type; Acquired hypothyroidism 01/10/2019 Office Visit [facility] [facility] 2660 [facility] [address] [place] [phone] Allergies Comments Active Allergy Reactions [...] Active calcium carbonate/vitamin Take by 0 D2 ([id number]-757-Z ORAL) mouth. Active losartan potassium Take by [...] CS PO QD 0 calcium carbonate/vitamin D2 (WNVNZMG-328-J ORAL) Take by mouth. valsartan (DIOVAN) 40 [...] Disp: , Rfl: 0 calcium carbonate/vitamin D2 (DSCUYVT-314-M ORAL), Take by mouth., Disp: , Rfl: [...] file Gets together: Not on file Attends voodoo service: Not on file Active member of [...] CBC WITH DIFFERENTIAL - COMP. METABOLIC PANEL (75225) - LIPASE 4. Acquired hypothyroidism In september her levels were in the hyperthyroid side which can cause diarrhea, repeat shows normal value. - FREE T4 - THYROID STIMULATING HORMONE This visit did not involve counseling and coordination that comprised more than 50% of the visit time. documented in this encounter Plan of Treatment Care Team Description Date Type Specialty Alyssa Cullen MD [address] [place] [phone] 07/11/2019 Office Visit Family Medicine Health Maintenance [...] COMP. METABOLIC PANEL Routine 01/10/2019 Diarrhea, unspecified (78259) 5:21 PM CDT type THYROID STIMULATING Routine 01/10/2019 Acquired hypothyroidism HORMONE 5:21 PM CDT FREE T4 Routine 01/10/2019 Acquired hypothyroidism 5:21 PM CDT LIPASE Routine 01/10/2019 Diarrhea, unspecified 5:21 PM CDT type documented in this encounter Results * LIPASE (01/10/2019 5:21 PM CDT) LIPASE 42 0 - 220 U/L [facility] Specimen Blood - ARM, RIGHT Performing Organization Address City/[facility]/Zipcode Phone Number [facility] CLIA: [id number], [address] [place] [address] [facility] * THYROID STIMULATING HORMONE (01/10/2019 5:21 PM CDT) TSH 1.88 0.45 - 4.70 mIU/L [facility] Specimen Blood - ARM, RIGHT Performing Organization Address City/State/Zipcode Phone Number [facility] CLIA: [id number], [address] [place] [address] [facility] * FREE T4 (01/10/2019 5:21 PM CDT) FREE T4 1.34 0.78 - 2.20 ng/dL: [facility] Specimen Blood - ARM, RIGHT Performing Organization Address City/[facility]/Zipcode Phone Number [facility] CLIA: [id number], [address] [place] [id number] * COMP. METABOLIC PANEL (82385) (01/10/2019 5:21 PM CDT) NA 143 135 - 145 mmol/L [facility] K 4.4 3.5 - 5.0 mmol/L [facility] CL 102 98 - 108 mmol/L [facility] CO2 TOTAL 30 23 - 31 mmol/L [facility] AGAP 11 2 - 16 [facility] BUN 37 (H) 7 - 23 mg/dL [facility] GLUCOSE 107 70 - 110 mg/dL [facility] CREATININE 1.25 (H) 0.50 - 1.04 mg/dL [facility] TOTAL BILI 0.6 0.1 - 1.1 mg/dL [facility] CALCIUM 8.2 (L) 8.6 - 10.6 mg/dL [facility] T PROTEIN 7.6 6.3 - 8.2 g/dL [facility] ALBUMIN 4.2 3.5 - 5.0 g/dL [facility] ALK PHOS 70 34 - 122 U/L [facility] ALT(SGPT) 19 9 - 51 U/L [facility] AST(SGOT) 27 13 - 40 U/L [facility] eGFR 41.4 mL/min/1.73m2 [facility] Calculation [facility] (Non-[facility]) eGFR 50.2 mL/min/1.73m2 [facility] Calculation [facility] ([facility]) Specimen Blood - ARM, RIGHT Narrative Performed At Association of Glomerular Filtration Rate (GFR) and Staging of Kidney Disease* [facility] + + + + [facility] | GFR (mL/min/1.73 m2)| With Kidney [...] tests). Performing Organization Address City/State/Zipcode Phone Number [facility] CLIA: [id number], [address] [place] [address] [facility] * CBC WITH DIFFERENTIAL (01/10/2019 5:21 PM CDT) WBC 8.27 4.30 - 11.10 [facility] 10*3/L [facility] RBC 4.34 3.93 - 5.25 10*6/L [facility] HGB 12.4 11.6 - 15.0 g/dL [facility] HCT 38.6 35.7 - 45.2 % [facility] MCV 88.9 80.6 - 95.5 fL [facility] MCH 28.6 25.9 - 32.8 pg [facility] MCHC 32.1 31.6 - 35.1 g/dL [facility] RDW-SD 44.2 39.0 - 49.9 fL [facility] RDW-CV 13.5 12.0 - 15.5 % [facility] PLT 310 166 - 358 10*3/L [facility] MPV 10.9 9.5 - 12.9 fL [facility] NRBC/100 WBC 0.0 0.0 - 10.0 /100 WBCs [facility] NRBC x10^3 <0.01 10*3/L [facility] GRAN MAT (NEUT) 64.0 % [facility] % [facility] IMM GRAN % 0.40 % [facility] LYMPH % 21.3 % [facility] MONO % 9.2 % [facility] EOS % 4.0 % [facility] BASO % 1.1 % [facility] GRAN MAT 5.30 1.88 - 7.09 10*3/uL [facility] x10^3(ANC) [facility] IMM GRAN x10^3 0.03 0.00 - 0.06 10*3/uL [facility] LYMPH x10^3 1.76 1.32 - 3.29 10*3/uL [facility] MONO x10^3 0.76 0.33 - 0.92 10*3/uL [facility] EOS x10^3 0.33 0.03 - 0.39 10*3/uL [facility] BASO x10^3 0.09 (H) 0.01 - 0.07 10*3/uL [facility] Specimen Blood - ARM, RIGHT Performing Organization Address City/State/Zipcode Phone Number [facility] CLIA: [id number], [address] [place] [address] [facility] documented in this encounter Visit Diagnoses Diagnosis Restless leg syndrome - Primary Restless legs syndrome (RLS) Motion sickness, initial encounter Diarrhea, unspecified type Acquired hypothyroidism Unspecified hypothyroidism documented in this encounter Insurance Type Payer Benefit Subscriber ID Effective Phone Address Plan / Dates Group Medicare Adv HMO [employer] - [employer] [id number] 2018-P MANAGED MEDICARE MEDICARE resent COMPLETE documented as of this encounter"
--- OUTSIDE RECORDS SUMMARY | 2019-03-28 05:14 | XMS REPORT | Summary of Care ---
Author Author [facility] - Health Organization [facility] - Health Address Unknown Phone Unavailable Care Team Providers Care Special Events Driver Name Role Phone Alyssa Cullen MD PCP Reason for Referral * (Routine) Referred By Contact Referred To Contact Status Reason Specialty Diagnoses / Procedures Alyssa Cullen MD [address] [place] [address] New Request Orthopedic Diagnoses Surgery Chronic knee pain, unspecified laterality P rocedures CONSULT/REFERRAL ORTHOPAEDIC SURGERY Reason for Visit * Reason Comments Referral/consult Encounter Details Care Team Description Date Type Department Alyssa Cullen MD [address] [facility] [address] [place] [address] Referral/consult 01/16/2019 Telephone [facility] [facility] [address] [phone] Allergies Comments Active Allergy Reactions Severity Noted Date Dry Mouth Lisinopril Other - See High 05/10/2018 comments documented as of this encounter (statuses as of 01/21/2019) Medications End Date Status Medication Sig Dispensed [...] Active calcium carbonate/vitamin Take by 0 D2 ([id number]-642-A ORAL) mouth. Active losartan potassium Take by [...] as of this encounter (statuses as of 01/21/2019) Active Problems Not on filedocumented as of this encounter (statuses as of 01/21/2019) Social History Date Tobacco Use Types Packs/Day [...] Date Type Specialty Alyssa Cullen MD 250 [facility] [address] [place] [address] [phone] 07/11/2019 Office Visit Family Medicine Health Maintenance [...] Plan / Dates Group Medicare Adv O [facility] - [employer]ARP [id number] 2018-P MANAGED MEDICARE MEDICARE resent COMPLETE documented as of this encounter
[2019-03-28 05:30] LABS: BASOPHILS # (AUTO) 0.1 (0.0-0.1); BASOPHILS % 0.8 % (0.0-1.0); EOSINOPHILS # (AUTO) 0.4 (0.0-0.4); EOSINOPHILS % 5.2 % (0.0-6.0); HEMATOCRIT 38.1 % (34.2-44.1); HEMOGLOBIN 12.5 g/dL (12.0-16.0); LYMPHOCYTES # (AUTO) 2.2 (1.0-3.2); LYMPHOCYTES % 26.1 % (18.0-39.1); MEAN CORPUSCULAR HEMOGLOBIN 28.7 pg (28-32); MEAN CORPUSCULAR HGB CONC 32.8 g/dL (31-35); MEAN CORPUSCULAR VOLUME 87.6 fL (81-99); MONOCYTES % 11.9 % (4.4-11.3); NEUTROPHILS # (AUTO) 4.7 (2.1-6.9); NEUTROPHILS % 55.6 % (38.7-80.0); PLATELET COUNT 286 x10e3/uL (140-360); RED BLOOD COUNT 4.35 x10e6/uL (3.6-5.1); RED CELL DISTRIBUTION WIDTH 13.2 % (11.7-14.4)
[2019-03-28 05:39] LABS: INR 0.84
[2019-03-28 05:40] LABS: PARTIAL THROMBOPLASTIN TIME 35.4 seconds (23.8-35.5)
[2019-03-28 05:49] LABS: CREATINE KINASE MB 2.5 ng/mL (0-5.0)
[2019-03-28 05:52] LABS: ALBUMIN 3.7 g/dL (3.5-5.0); CALCIUM 8.3 mg/dL (8.4-10.2); CREATININE, SERUM 1.17 mg/dL (0.57-1.11)
--- NOTE | 2019-03-28 06:37 | Diagnostic Imaging Report ---
EXAMINATION: CHEST 2 VIEWS INDICATION: ^CHEST PRESSURE X1 DAY COMPARISON: None FINDINGS: PA and lateral views TUBES and LINES: None. LUNGS: Lungs are well inflated. No consolidations. Prominent pulmonary vasculature. PLEURA: No pleural effusion or pneumothorax. HEART AND MEDIASTINUM: The cardiomediastinal silhouette is mildly enlarged. Post surgical changes along the left mediastinum.. Calcifications of the aorta. BONES AND SOFT TISSUES: There are degenerative changes in the thoracic spine. Soft tissues are unremarkable. Sternotomy wires. UPPER ABDOMEN: No free air under the diaphragm. IMPRESSION: Mild cardiomegaly and pulmonary vascular congestion. Signed by: Robert Duncan DO on 03/28/2019 6:34 AM
--- NOTE | 2019-03-28 07:16 | NUR ---
REPORT GIVEN TO ISAMAR LEAVITT
[2019-03-28] MEDS ORDERED: FUROSEMIDE INJ 10 MG/ML 4 ML VIAL IV ONE ×2 (07:30→18:45)
[2019-03-28] MEDS ORDERED: ASPIRIN 81 MG CHEW TAB PO ONE (10:30)
[2019-03-28] MEDS ORDERED: MORPHINE SULFATE 2 MG/ML SYR 1ML IV PRN (10:30)
[2019-03-28] MEDS ORDERED: ONDANSETRON HCL INJ 2MG/ML 2ML 2 MG/ML VIAL IV PRN (10:30)
[2019-03-28] MEDS ORDERED: SODIUM CHLORIDE FLUSH 10 ML SYR INJ PRN (10:30)
[2019-03-28] MEDS ORDERED: NITROGLYCERIN 0.4 MG SUBL SL PRN (10:30)
[2019-03-28] MEDS: FAMOTIDINE 20 MG TAB PO SCH ×2 (11:19→20:03)
--- NOTE | 2019-03-28 11:36 | Diagnostic Imaging Report ---
EXAMINATION: CHEST 2 VIEWS INDICATION: Shortness of breath COMPARISON: None FINDINGS: LINES/TUBES:Neck EKG LUNGS:The lungs are moderately inflated. Mild biapical pleural parenchymal thickening/scarring. There is perihilar fullness and indistinctness of the pulmonary vasculature. PLEURA:No pleural effusion or pneumothorax. MEDIASTINUM:Postoperative findings of prior CABG. BONES/SOFT TISSUES:No acute osseous injury. Sternotomy wires intact. ABDOMEN:No free air under the diaphragm. IMPRESSION: Minimal pulmonary interstitial edema. Unchanged mild cardiomegaly. Signed by: Tracey Montes MD on 03/28/2019 11:33 AM
[2019-03-28 12:24] VITALS: BP 150/65
--- NOTE | 2019-03-28 12:25 | NUR ---
RECD PT FROM ER VIA W/C AAOX3,TELE IN PLACE,NO C/O CHEST PAIN,SL TO RT AC
[2019-03-28] MEDS ORDERED: GABAPENTIN300 MG PO (13:04)
[2019-03-28] MEDS ORDERED: ROPINIROLE HCL1 MG PO (13:04)
[2019-03-28 14:00] VITALS: BP 150/65
[2019-03-28] MEDS ORDERED: ACETAMINOPHEN/CODEINE 300MG - 30MG TAB PO PRN (14:30)
[2019-03-28] MEDS: ISOSORBIDE MONONITRATE 30 MG TAB CR PO SCH (15:00)
[2019-03-28] MEDS: PANTOPRAZOLE SOD 40 MG TABEC PO SCH (15:00)
[2019-03-28] MEDS: VALSARTAN 80 MG TAB PO SCH (15:00)
[2019-03-28 15:27] LABS: CREATINE KINASE MB 2.7 ng/mL (0-5.0)
[2019-03-28 16:00] VITALS: BP 122/55
--- NOTE | 2019-03-28 18:01 | NUR ---
PT UP IN BED DENIES CHEST PAIN NO DISTRESS NOTED
--- NOTE | 2019-03-28 19:05 | NUR ---
Received change of shift report from AM nurse.
[2019-03-28 20:00] VITALS: BP 143/59
--- NOTE | 2019-03-28 20:42 | Consultation ---
DATE OF CONSULTATION: 03/28/2019 Cardiology Consultation ADDITIONAL REFERRING PHYSICIAN: Phil Geller MD. CONSULTING: Barrett Waldron MD, Interventional Cardiology. REASON FOR CONSULTATION: Heart failure. HISTORY OF PRESENT ILLNESS: Ms. Camargo is a 78-year-old woman with morbid obesity, hypertension, dyslipidemia, coronary artery disease, status post aortic coronary bypass several years ago at [facility], history of CKD and chronic heart failure, unspecified, who presents with gradually worsening lower extremity edema, weight gain, and orthopnea. Symptoms have continued to worsen despite of the patient doubling up furosemide to 40 mg b.i.d. she decided to seek further attention in the ER. She has been initiated on IV Lasix with improvement in symptoms. She currently has no complaint. When she lies flat, she starts noticing shortness of breath and chest discomfort that is relieved when sitting upright. She denies any exertional chest discomfort. She has no other complaints at this time. Currently symptom free. REVIEW OF SYSTEMS: A 12-system review is negative except for as noted above. PAST MEDICAL HISTORY: Remarkable for hypertension, chronic heart failure, unspecified morbid obesity, coronary artery disease and chronic kidney disease. SOCIAL HISTORY: Denies smoking, alcohol, or drugs. FAMILY HISTORY: Noncontributory. PHYSICAL EXAMINATION: VITAL SIGNS: Temperature 96.4, heart rate 57, blood pressure 122/55, respiratory rate 16, O2 saturation 97%, BMI 36.8. GENERAL: In no acute distress alert. NECK: JVD elevated to lower half of that with elevation 60 degrees of head of bed. No carotid bruits. CHEST: Clear to auscultation. CARDIOVASCULAR: Regular rate and rhythm. Normal S1, S2. No S3 or S4. Systolic ejection murmur to the left lower sternal border. ABDOMEN: Soft, nontender. Bowel sounds positive. EXTREMITIES: With trace edema. Varicose vein and telangiectasias with skin discoloration to the malleolus bilaterally. Trace edema. CARDIOVASCULAR MEDICATIONS: Reviewed. Furosemide 40 mg IV daily will be up titrated to b.i.d. metoprolol succinate 25 mg daily, KCl 10 mEq daily, aspirin 81 mg daily valsartan 40 mg at bedtime. STUDIES: Reviewed remarkable for creatinine 1.1, potassium 4, bicarbonate 28, white blood cells 8.4, and hematocrit 38. ASSESSMENT: 1. Acute on chronic heart failure, unspecified. 2. Coronary artery disease with history of bypass. 3. Hypertension. 4. Morbid obesity. 5. Venous insufficiency. RECOMMENDATIONS: 1. Up titrate Lasix to 40 mg IV b.i.d., maintain a low-sodium diet. Continue metoprolol, losartan as well as aspirin. 2. Obtain echocardiogram. 3. Maintain on telemetry overnight. Thank you for the opportunity to participate in the care of this patient. Please feel free to call with any questions. Barrett Waldron MD AFV/MODL /[id number]
[2019-03-28] MEDS ORDERED: GABAPENTIN 300 MG CAP PO PRN (21:00)
[2019-03-28] MEDS ORDERED: ROPINIROLE HCL 0.25 MG TAB PO SCH (21:00)
[2019-03-28] MEDS ORDERED: ROPINIROLE HCL 1 MG TAB PO SCH (21:00)
--- NOTE | 2019-03-28 21:12 | NUR ---
Called MD to get order for proper doses of gabapentin. Waiting for call back.
--- NOTE | 2019-03-28 21:24 | NUR ---
Received orders from Dr Luque.
[2019-03-28] MEDS: FUROSEMIDE INJ 10 MG/ML 4 ML VIAL IV SCH (22:15)
[2019-03-28] MEDS ORDERED: POTASSIUM CHLORIDE 10MEQ EA PO ONE (22:45)
[2019-03-28] MEDS: GABAPENTIN 300 MG CAP PO PRN (22:58)
[2019-03-29] VITALS: BP 136/60
--- NOTE | 2019-03-29 00:47 | History and Physical ---
PRIMARY CARE DOCTOR: Dr. Alyssa Cullen. HOSPITAL DOCTOR: Dr. Phil Geller REASON FOR ER VISIT: Chest pain. HISTORY OF PRESENT ILLNESS: Ms. Camargo is a pleasant 78-year-old female with chest pain. The patient with previous cardiac history including May 2013, non ST elevation [place]. The patient had left heart catheterization at time showing significant coronary artery disease, LVEF 55%. At that time. The patient was recommended for CABG. She tells me two heart catheterizations showing significant coronary artery disease. The patient went for two vessel CABG at that time she tells me, which was done successfully. The patient has been having a good level of function since. However, they see the patient started to get chest tightness. The patient underwent Lexiscan stress test earlier this year, which she reports was totally normal. At this time, the patient was left for conservative followup on medicines. However, the patient is having resurgence of chest symptoms with pattern as significantly worsened. At this time, the patient comes to the emergency room. Of note, troponins were 0.059. The patient was recommended for further evaluation and assessment. PAST MEDICAL HISTORY: Hypertension, thyroidectomy secondary to thyroid cancer, daily GERD. MEDICATIONS: Medication list reviewed per the chart record. ALLERGIES: NO KNOWN DRUG ALLERGIES. SOCIAL HISTORY: No alcohol. No drugs. No smoking. The patient lives with daughter with cerebral palsy who is 48 years of age, who is wheelchair bound and cannot transfer by herself. She has four local sons. She is mostly homemaker. FAMILY HISTORY: Noncontributory. REVIEW OF SYSTEMS: GENERAL: No weight changes. OPHTHALMOLOGIC: No vision changes. ENT: No mouth ulcers. PULMONARY: Mild wheezing rare. CARDIAC: No recent heart attacks. GI: No constipation. : No blood in urine. NEUROLOGIC: No seizures. IMMUNOLOGIC: No lupus. DERMATOLOGIC: No rash. OBJECTIVE: VITAL SIGNS: Afebrile, vital signs noted reviewed per the chart record. GENERAL: In no acute distress. Alert and calm. HEENT: Normocephalic atraumatic. NECK: Supple. Throat midline. LUNGS: Bilateral air entry, rare rhonchi. CARDIOVASCULAR: S1, S2. No murmurs, rubs, or gallops. ABDOMEN: Soft, nontender. EXTREMITIES: No clubbing, no cyanosis. There is no edema. INTEGUMENT: No rash or purpura. LABORATORY DATA: Labs reviewed per the chart record. BNP 243. Creatinine is 1.17. Hematocrit 38. Chest x-ray clear. IMPRESSION/PLAN: 1. Chest pain, treat as unstable angina, acute coronary syndrome, non ST elevation [place]. 2. Known coronary artery disease status post CABG 2013. 3. Hypertension. 4. History of thyroidectomy due to thyroid cancer. 5. Daily GERD. Admit to [facility] telemetry. Cardiology consult. Consider heart catheterization invasive testing. We will consider bronchodilators as well if patient feels like she needs help expectorating. To use cardiac medication at this time. Thank you very much, Dr. Cullen for allowing Dr. Geller and I had the chance to participate in the care of your patient. Please call for questions. MD EDYTA Haas/GERALDINE /[id number] MTDD
[2019-03-29 04:00] VITALS: BP 141/62
--- NOTE | 2019-03-29 05:31 | NUR ---
Patient resting quitly at this time. Continue monitor.
[2019-03-29] MEDS: LEVOTHYROXINE SODIUM 112 MCG TAB PO SCH (05:38)
[2019-03-29 06:40] LABS: CHOL/HDL RATIO 4.3 (3.0-3.6); MAGNESIUM 1.9 MG/DL (1.3-2.1)
[2019-03-29 06:56] LABS: CREATINE KINASE MB 2.2 ng/mL (0-5.0)
[2019-03-29] MEDS: PANTOPRAZOLE SOD 40 MG TABEC PO SCH (08:08)
[2019-03-29] MEDS: ASPIRIN 81 MG CHEW TAB PO SCH (08:14)
[2019-03-29] MEDS: FUROSEMIDE INJ 10 MG/ML 4 ML VIAL IV SCH ×2 (08:14→21:00)
[2019-03-29 08:15] VITALS: BP 125/59
[2019-03-29] MEDS: ISOSORBIDE MONONITRATE 30 MG TAB CR PO SCH (08:15)
[2019-03-29] MEDS: FAMOTIDINE 20 MG TAB PO SCH ×2 (08:15→21:00)
[2019-03-29] MEDS: POTASSIUM CHLORIDE 10MEQ EA PO SCH (08:15)
[2019-03-29] MEDS: METOPROLOL SUCCINATE 25 MG TAB XL PO SCH (08:15)
[2019-03-29] MEDS: VALSARTAN 80 MG TAB PO SCH (08:15)
[2019-03-29] MEDS: ROPINIROLE HCL 0.25 MG TAB PO PRN ×2 (08:16→21:21)
[2019-03-29 08:31] LABS: ANION GAP 19.3 mmol/L (8-16); CALCIUM 8.1 mg/dL (8.4-10.2); CREATININE, SERUM 1.31 mg/dL (0.57-1.11); POTASSIUM 4.3 mmol/L (3.5-5.1)
[2019-03-29] MEDS ORDERED: ASPIRIN 81 MG ENTERIC COATED PO SCH (09:00)
[2019-03-29] MEDS ORDERED: FUROSEMIDE 40 MG TAB PO SCH ×2 (09:00)
[2019-03-29] MEDS ORDERED: VALSARTAN 40 MG PO SCH (09:00)
[2019-03-29] MEDS ORDERED: POTASSIUM CHLORIDE 20 MEQ TAB CR PO SCH (09:00)
[2019-03-29 10:46] VITALS: BP 125/59
--- NOTE | 2019-03-29 11:30 | NUR ---
PT BP 85/[address] MARISCAL,ORDERS TO HOLD IMDUR,
[2019-03-29 11:38] VITALS: BP 82/54
--- NOTE | 2019-03-29 14:39 | NUR ---
PT IN OBS >24HRS. ECHO PENDING. NO DC ORDER. SENT TO R1 FOR REVIEW.
--- NOTE | 2019-03-29 14:55 | NUR ---
BP 102/62,C/O PAIN TO LT MIDDLE BACK
[2019-03-29 16:04] VITALS: BP 92/44
--- NOTE | 2019-03-29 16:51 | NUR ---
MEDICINE COVERAGE DATE: 03/29/19 PRIMARY CARE DOCTOR: Dr. Alyssa Cullen [facility] MD: Phil Geller SUBJECTIVE: no chest pain today BP dropped however, medications adjusted patient remains on diuresis decreased leg edema REVIEW OF SYSTEMS: NO HEADACHES, no bleeding OBJECTIVE: VITAL SIGNS: vital signs noted reviewed per the chart record. GENERAL: no acute distress. Alert and calm. HEENT: Normocephalic atraumatic. NECK: Supple. Throat midline. LUNGS: Bilateral air entry, rare rhonchi. CARDIOVASCULAR: S1, S2. No murmurs, rubs, or gallops. ABDOMEN: Soft, nontender. EXTREMITIES: No clubbing, no cyanosis. trace edema. INTEGUMENT: No rash or purpura. LABORATORY DATA: k 4.3, cr 1.31. wbc 8.4, hct 38. plt 286 IMPRESSION/PLAN: 1. Chest tightness, fluid overload. Better 2. Known coronary artery disease s/p CABG 2013. 3. Hypertension. 4. Hx thyroidectomy due to thyroid cancer. 5. Daily GERD. Continue telemetry Follow with cardiology Diuresis, medical management rx GERD Thank you very much, Dr. Cullen for allowing Dr. Geller and I had the chance to participate in the care of your patient. Please call for questions.
--- NOTE | 2019-03-29 17:00 | NUR ---
DR MARISCAL AND DR STRANGE HERE PT UP IN CHAIR DENIES PAIN.
--- NOTE | 2019-03-29 20:25 | NUR ---
Received change of shift report from nurse.
[2019-03-29] MEDS: GABAPENTIN 300 MG CAP PO PRN (21:21)
--- NOTE | 2019-03-29 23:52 | Progress Note ---
DATE: 03/29/2019 Cardiology Progress Note SUBJECTIVE: Orthopnea has improved. Denies any other complaints except for an episode of back discomfort, which worsens with movement of upper extremities and is unrelated to exertion. She has been able to ambulate without any associated complaints. OBJECTIVE: VITAL SIGNS: Temperature 95.3, heart rate 63, blood pressure 82 to 110 over 54 to 110, respiratory rate 20, O2 saturation 98%. BMI 40. GENERAL: No acute distress, alert. NECK: No JVD. CHEST: Clear to auscultation. CARDIOVASCULAR: Regular rate and rhythm. Normal S1 and S2. ABDOMEN: Soft, nontender. Bowel sounds positive. EXTREMITIES: Trace edema. CARDIOVASCULAR MEDICATIONS: Reviewed. Metoprolol succinate 25 mg daily, furosemide 40 mg every 12 hours, valsartan 40 mg daily, aspirin 81 mg daily. STUDIES: Reviewed. Sodium 141, potassium 4.3, chloride 98, bicarbonate 28, BUN 25, creatinine 1.3, glucose 96. White blood cells 8.4, hemoglobin 12.5, and platelets 286. INR 0.8. PT 12, PTT 35.4. AST 23, ALT 17, alkaline phosphatase 78, total bilirubin 0.4. ASSESSMENT AND PLAN: A 78-year-old woman presents with [id number]-hsyoeid heart failure, morbid obesity, hypertension, and history of coronary artery disease with previous bypass, and venous insufficiency. RECOMMENDATIONS: Continue current medications with the following change. Discontinue isosorbide and consider transition to p.o. diuretics as of tomorrow. Outpatient followup with Cardiology within 1 week post discharge. Low-sodium diet encouraged. Barrett Waldron MD AFNaomie/MODL /[id number]
[2019-03-30] VITALS: BP 118/54
[2019-03-30 04:00] VITALS: BP 94/55
[2019-03-30] MEDS: LEVOTHYROXINE SODIUM 112 MCG TAB PO SCH (05:52)
[2019-03-30 07:35] VITALS: BP 115/57
--- NOTE | 2019-03-30 07:55 | NUR ---
PT IN BED SLEEPING NO S/SDISCOMFORT.
[2019-03-30 07:59] VITALS: BP 115/57
[2019-03-30] MEDS: METOPROLOL SUCCINATE 25 MG TAB XL PO SCH (09:00)
[2019-03-30] MEDS: VALSARTAN 80 MG TAB PO SCH (09:00)
[2019-03-30] MEDS: FUROSEMIDE INJ 10 MG/ML 4 ML VIAL IV SCH (09:00)
[2019-03-30] MEDS: PANTOPRAZOLE SOD 40 MG TABEC PO SCH (09:00)
[2019-03-30] MEDS: FAMOTIDINE 20 MG TAB PO SCH (09:00)
[2019-03-30] MEDS: ASPIRIN 81 MG CHEW TAB PO SCH (09:00)
[2019-03-30] MEDS: POTASSIUM CHLORIDE 10MEQ EA PO SCH (09:00)
[2019-03-30 11:44] VITALS: BP 120/58
--- NOTE | 2019-03-30 11:48 | NUR ---
PT UP AMBULATING IN [place]
--- NOTE | 2019-03-30 14:30 | NUR ---
pt discharged home, iv dcd withut redness or swelling.transported to [facility] via w/c
--- NOTE | 2019-03-31 02:18 | NUR ---
discharge summary 03/30/19 [id number]
--- NOTE | 2019-03-31 05:32 | Discharge Summary ---
PRIMARY CARE DOCTOR: Dr. Alyssa Cullen. HOSPITAL PHYSICIAN: The patient's hospital physician, Dr. Phil Geller. This covers for Dr. Geller. PRIMARY DIAGNOSIS: Chest tightness, diastolic congestive heart failure. SECONDARY DIAGNOSES: Include coronary artery disease, status post CABG in 2013, hypertension, history of thyroidectomy due to thyroid cancer, daily gastroesophageal reflux disease. HOSPITAL COURSE: Ms. Camargo was admitted. She ruled out for OK on after having concerning symptoms. Her troponins were at 0.065 maximum. CK-MB level peaked at 3.0. The patient was having leg edema and this was treated with Lasix. Her symptoms got better including chest tightness. Knowing that she has an outside unhairer, I was elected to discharge her for outpatient followups unhairer. Her nitrates were decreased due to hypotension. Transient Lasix was reverted back to her home dose and she was notified that this may or may not need to be titrated upwards. She needs to take low salt intake. DIET AT DISCHARGE: Diet low salt, cardiac diet. ACTIVITY: As tolerated. FOLLOW UP: With Dr. Cullen and Dr. Vargas. MEDICATIONS AT DISCHARGE: See medication list for details. Greater than 30 minutes spent in discharge planning and coordination on date. MD EDYTA Haas/GERALDINE /[id number]
== END 2019-03-30 14:30 | disposition home or self-care (01) ==
LOC: ER 05:10 → ERHOLD 10:21 → MED/SURG3 12:26
PROVIDERS: ADMIT Internal Medicine; ATTEND Internal Medicine
DX: I13.0 Hypertensive heart and chronic kidney disease with heart failure and stage 1 through stage 4 chronic kidney disease, or unspecified chronic kidney disease (principal); I50.33 Acute on chronic diastolic (congestive) heart failure; I25.10 Atherosclerotic heart disease of native coronary artery without angina pectoris; Z95.1 Presence of aortocoronary bypass graft; I25.2 Old myocardial infarction; E89.0 Postprocedural hypothyroidism; K21.9 Gastro-esophageal reflux disease without esophagitis; Z85.850 Personal history of malignant neoplasm of thyroid; E66.01 Morbid (severe) obesity due to excess calories; Z68.41 Body mass index [BMI] 40.0-44.9, adult; E78.5 Hyperlipidemia, unspecified; N18.9 Chronic kidney disease, unspecified; I87.2 Venous insufficiency (chronic) (peripheral)
CPT/HCPCS: 36415 ×2; 71046; 80048; 80053; 80061; 82550 ×2; 82553 ×2; 83735; 83880; 84484 ×2; 85025; 85610; 85730; 93005; 93306; 96365; 99284; G0378 ×3; J1940 ×3; S0164 ×3

== ENCOUNTER 2022-06-28 08:56 | Emergency (ER) | payer MEDICARE ==
[~2022-06-28] VITALS: Ht 160 cm; Wt 103.0 kg
[~2022-06-28 08:56] MED LIST changes: +GABAPENTIN300 MG PO; +ROPINIROLE HCL1 MG PO
[2022-06-28] MEDS ORDERED: ASPIRIN 81 MG CHEW TAB PO ONE (09:15)
[2022-06-28] MEDS ORDERED: Morphine 2mg Syringe 2 MG/ML SYR IV ONE (09:15)
[2022-06-28] MEDS ORDERED: ONDANSETRON HCL INJ 2MG/ML 2ML 2 MG/ML VIAL IV STA (09:15)
[2022-06-28] MEDS ORDERED: SODIUM CHLORIDE FLUSH 10 ML SYR IV PRN (09:15)
[2022-06-28 10:12] LABS: BASOPHILS # (AUTO) 0.1 (0.0-0.1); BASOPHILS % 1.1 % (0.0-1.0); EOSINOPHILS # (AUTO) 0.3 (0.0-0.4); EOSINOPHILS % 3.9 % (0.0-6.0); HEMATOCRIT 35.6 % (34.2-44.1); HEMOGLOBIN 11.8 g/dL (12.0-16.0); LYMPHOCYTES # (AUTO) 1.5 (1.0-3.2); LYMPHOCYTES % 23.2 % (18.0-39.1); MEAN CORPUSCULAR HEMOGLOBIN 31.1 pg (28-32); MEAN CORPUSCULAR HGB CONC 33.1 g/dL (31-35); MEAN CORPUSCULAR VOLUME 93.7 fL (81-99); MONOCYTES # (AUTO) 0.7 (0.2-0.8); MONOCYTES % 10.9 % (4.4-11.3); NEUTROPHILS % 60.6 % (38.7-80.0); PLATELET COUNT 222 x10e3/uL (140-360); RED CELL DISTRIBUTION WIDTH 13.2 % (11.7-14.4)
[2022-06-28 10:43] LABS: ALBUMIN 3.6 g/dL (3.5-5.0); ALBUMIN/GLOBULIN RATIO 1.1 (0.8-2.0); ANION GAP 15.9 mmol/L (8-16); CALCIUM 8.6 mg/dL (8.4-10.2); CREATININE, SERUM 1.5 mg/dL (0.57-1.11); POTASSIUM 3.9 mmol/L (3.5-5.1)
[2022-06-28 11:12] LABS: CLARITY,URINE CLEAR (CLEAR); COLOR,URINE YELLOW (YELLOW); KETONES,URINE NEGATIVE (NEGATIVE); LEUKOCYTE ESTERASE ,URINE NEGATIVE (NEGATIVE); NITRITE,URINE NEGATIVE (NEGATIVE); PROTEIN,URINE DIPSTICK NEGATIVE (NEGATIVE); URINE UROBILINOGEN 0.2 mg/dL (0.2 - 1)
[2022-06-28 11:26] LABS: RBC,URINE 0-5 /HPF (0-5); WBC,URINE (MAN) 0-5 /HPF (0-5)
[2022-06-28 13:38] VITALS: BP 137/84
== END 2022-06-28 13:43 | disposition home or self-care (01) ==
LOC: ER 08:59
DX: R06.02 Shortness of breath (principal); R07.9 Chest pain, unspecified; I10 Essential (primary) hypertension; E03.9 Hypothyroidism, unspecified; I50.9 Heart failure, unspecified; K21.9 Gastro-esophageal reflux disease without esophagitis; M54.9 Dorsalgia, unspecified; G89.29 Other chronic pain; Z95.1 Presence of aortocoronary bypass graft
CPT/HCPCS: 36415; 71046; 80053; 81001; 83880; 84484; 85025; 93005; 99284

== ENCOUNTER 2022-07-29 22:49 | Emergency (ER) | payer MEDICARE ==
[~2022-07-29] VITALS: Ht 160 cm; Wt 103.0 kg
[2022-07-29] MEDS ORDERED: ACETAMINOPHEN 325 MG TAB PO ONE (23:15)
[2022-07-29 23:31] LABS: CLARITY,URINE CLEAR (CLEAR); COLOR,URINE YELLOW (YELLOW); KETONES,URINE NEGATIVE (NEGATIVE); LEUKOCYTE ESTERASE ,URINE NEGATIVE (NEGATIVE); NITRITE,URINE NEGATIVE (NEGATIVE); PROTEIN,URINE DIPSTICK NEGATIVE (NEGATIVE); URINE UROBILINOGEN 0.2 mg/dL (0.2 - 1)
[2022-07-29 23:39] LABS: BACTERIA,URINE RARE /HPF; EPITHELIAL CELLS,URINE RARE /LPF; RBC,URINE 0-5 /HPF (0-5); WBC,URINE (MAN) 0-5 /HPF (0-5)
[2022-07-30] MEDS ORDERED: DOXYCYCLINE HY100 MG PO (00:06)
== END 2022-07-30 00:15 | disposition home or self-care (01) ==
LOC: ER 22:59
DX: R60.9 Edema, unspecified (principal); M79.672 Pain in left foot; I10 Essential (primary) hypertension; I50.9 Heart failure, unspecified; E03.9 Hypothyroidism, unspecified; K21.9 Gastro-esophageal reflux disease without esophagitis; M54.9 Dorsalgia, unspecified; G89.29 Other chronic pain; Z95.1 Presence of aortocoronary bypass graft
CPT/HCPCS: 81001; 93971; 99283

== ENCOUNTER 2023-02-23 11:45 | Inpatient (IN) | payer MEDICARE ==
[~2023-02-23] VITALS: Ht 157.5 cm; Wt 97.5 kg
[~2023-02-23 11:45] MED LIST changes: +DOXYCYCLINE HY100 MG PO; +MUCINEX DM ER1 EACH PO
[2023-02-23 13:41] LABS: BASOPHILS % 0.3 % (0.0-1.0); HEMATOCRIT 31.9 % (34.2-44.1); HEMOGLOBIN 10.7 g/dL (12.0-16.0); LYMPHOCYTES # (AUTO) 1.1 (1.0-3.2); LYMPHOCYTES % 8.5 % (18.0-39.1); MEAN CORPUSCULAR HEMOGLOBIN 29.6 pg (28-32); MEAN CORPUSCULAR HGB CONC 33.5 g/dL (31-35); MEAN CORPUSCULAR VOLUME 88.4 fL (81-99); MONOCYTES # (AUTO) 1.4 (0.2-0.8); MONOCYTES % 10.3 % (4.4-11.3); NEUTROPHILS # (AUTO) 10.8 (2.1-6.9); NEUTROPHILS % 80.5 % (38.7-80.0); PLATELET COUNT 220 x10e3/uL (140-360); RED BLOOD COUNT 3.61 x10e6/uL (3.6-5.1); WHITE BLOOD COUNT 13.45 x10e3/uL (4.8-10.8)
[2023-02-23 13:46] LABS: INR 1.43; PROTHROMBIN TIME 18.3 seconds (11.9-14.5)
[2023-02-23 13:47] LABS: PARTIAL THROMBOPLASTIN TIME 41.3 seconds (23.8-35.5)
[2023-02-23 13:48] LABS: CLARITY,URINE CLEAR (CLEAR); COLOR,URINE YELLOW (YELLOW)
[2023-02-23 13:49] LABS: KETONES,URINE NEGATIVE (NEGATIVE); LEUKOCYTE ESTERASE ,URINE NEGATIVE (NEGATIVE); NITRITE,URINE NEGATIVE (NEGATIVE); PROTEIN,URINE DIPSTICK TRACE (NEGATIVE); URINE UROBILINOGEN 0.2 mg/dL (0.2 - 1)
[2023-02-23 13:53] LABS: ANION GAP 15.8 mmol/L (8-16); BLOOD UREA NITROGEN 22 mg/dL (7-26); BUN/CREATININE RATIO 18 (6-25); CALCIUM 7.9 mg/dL (8.4-10.2); CARBON DIOXIDE 24 mmol/L (22-29); CHLORIDE 101 mmol/L (98-107); CREATINE KINASE 83 IU/L (29-168); CREATININE, SERUM 1.25 mg/dL (0.57-1.11); GLUCOSE 120 mg/dL (74-118); POTASSIUM 3.8 mmol/L (3.5-5.1); SODIUM 137 mmol/L (136-145)
[2023-02-23 14:06] LABS: BACTERIA,URINE FEW /HPF; EPITHELIAL CELLS,URINE FEW /LPF; WBC,URINE (MAN) 0-5 /HPF (0-5)
[2023-02-23 14:08] LABS: B-TYPE NATRIURETIC PEPTIDE2 538.9 pg/mL (0-100)
[2023-02-23 14:45] LABS: STREPTOCOCCUS GRP A ANTIGEN NEGATIVE (NEGATIVE)
[2023-02-23 14:49] LABS: INFLUENZAE A&B ANTIGEN (RAPID) NEGATIVE (NEGATIVE)
[2023-02-23] MEDS ORDERED: ACETAMINOPHEN 325 MG TAB PO ONE (15:15)
[2023-02-23 20:10] VITALS: BP 123/65; PULSE 72; RESP 18; TEMP 98.5; O2SAT 97
[2023-02-23 21:11] VITALS: BP 129/67; PULSE 84; RESP 21; TEMP 98.4; O2SAT 96
[2023-02-23] MEDS ORDERED: ELIQUIS2.5 MG PO (21:12)
[2023-02-23] MEDS ORDERED: GABAPENTIN400 MG PO (21:12)
[2023-02-23] MEDS ORDERED: ATORVASTATIN CA10 MG PO (21:12)
[2023-02-23] MEDS ORDERED: GABAPENTIN100 MG PO (21:12)
[2023-02-23] MEDS ORDERED: CALCITRIOL0.5 MCG PO (21:12)
[2023-02-23] MEDS ORDERED: LEVOTHYROXINE100 MCG PO (21:12)
[2023-02-23] MEDS ORDERED: LOSARTAN POTASS25 MG PO (21:12)
[2023-02-23] MEDS ORDERED: K DUR10 MEQ PO (21:12)
[2023-02-23] MEDS ORDERED: FUROSEMIDE40 MG PO (21:12)
[2023-02-23] MEDS ORDERED: ISOSORBIDE MONO60 MG PO (21:12)
[2023-02-24 00:24] VITALS: BP 121/73; PULSE 96; RESP 21; TEMP 100.8; O2SAT 94
[2023-02-24] MEDS: ACETAMINOPHEN 325 MG TAB PO PRN (04:47)
[2023-02-24 05:02] VITALS: BP 142/69; PULSE 92; RESP 21; TEMP 102.4; O2SAT 97
[2023-02-24] MEDS ORDERED: ALBUTEROL/IPRATROPIUM 3 ML NEB NEB PRN (09:00)
[2023-02-24] MEDS ORDERED: APIXAB 2.5 MG TABLET PO SCH (09:00)
[2023-02-24] MEDS: METOPROLOL SUCCINATE 25 MG TAB XL PO SCH (09:00)
[2023-02-24] MEDS ORDERED: DOCUSATE SODIUM 100 MG CAP PO PRN (09:00)
[2023-02-24] MEDS ORDERED: ONDANSETRON HCL INJ 2MG/ML 2ML 2 MG/ML VIAL IV PRN (09:00)
[2023-02-24] MEDS ORDERED: GUAIFENESIN 600MG/DEXTROMETHORPHAN 30MG TABSR PO PRN (09:00)
[2023-02-24] MEDS ORDERED: SIMETHICONE 80 MG CHEW PO PRN (09:00)
[2023-02-24] MEDS ORDERED: BENZONATATE 100 MG CAP PO PRN (09:00)
[2023-02-24 09:20] VITALS: BP 104/53; PULSE 94; RESP 24; TEMP 98.3; O2SAT 95
[2023-02-24] MEDS: ATORVASTATIN 10 MG TAB PO SCH (09:43)
[2023-02-24] MEDS: PANTOPRAZOLE SOD 40 MG TABEC PO SCH (09:44)
[2023-02-24] MEDS ORDERED: CALCITRIOL 0.5 MCG CAP PO SCH (11:00)
[2023-02-24] MEDS: ISOSORBIDE MONONITRATE 30 MG TAB CR PO SCH (11:47)
[2023-02-24] MEDS: LEVOTHYROXINE SODIUM 112 MCG TAB PO SCH (12:58)
[2023-02-24] MEDS: BARICITINIB 2 MG TABLET PO SCH (15:44)
[2023-02-24] MEDS: DEXAMETHASONE SOD PHOS 10 MG/1 ML VIAL IV SCH (15:45)
[2023-02-24] MEDS ORDERED: REMDESIVIR 100MG 200 MG in SODIUM CHLORIDE 0.9% 100 ML IV ONE (16:00)
[2023-02-24 16:18] VITALS: BP 104/54; PULSE 98; RESP 16; TEMP 99.7; O2SAT 99
[2023-02-24] MEDS: GABAPENTIN 300 MG CAP PO SCH (16:53)
[2023-02-24 20:30] VITALS: BP 123/56; PULSE 82; RESP 21; TEMP 97.7; O2SAT 98
[2023-02-24] MEDS: ROPINIROLE HCL 1 MG TAB PO SCH (20:32)
[2023-02-24] MEDS: APIXAB 2.5 MG TABLET PO SCH (20:32)
[2023-02-24] MEDS: GABAPENTIN 400 MG CAP PO SCH (20:32)
[2023-02-25] VITALS (9 sets, daily range): BP systolic 101–140; BP diastolic 58–86; PULSE 60–92; RESP 18–22; TEMP 97.5–97.9; O2SAT 95–100
[2023-02-25] MEDS: LEVOTHYROXINE SODIUM 112 MCG TAB PO SCH (05:37)
[2023-02-25 06:32] LABS: BASOPHILS % 0.2 % (0.0-1.0); HEMATOCRIT 27.5 % (34.2-44.1); HEMOGLOBIN 9.8 g/dL (12.0-16.0); LYMPHOCYTES # (AUTO) 0.7 (1.0-3.2); LYMPHOCYTES % 8.2 % (18.0-39.1); MEAN CORPUSCULAR HEMOGLOBIN 31.9 pg (28-32); MEAN CORPUSCULAR HGB CONC 35.6 g/dL (31-35); MEAN CORPUSCULAR VOLUME 89.6 fL (81-99); MONOCYTES # (AUTO) 0.4 (0.2-0.8); MONOCYTES % 4.5 % (4.4-11.3); NEUTROPHILS # (AUTO) 7.5 (2.1-6.9); NEUTROPHILS % 86.6 % (38.7-80.0); PLATELET COUNT 160 x10e3/uL (140-360); RED BLOOD COUNT 3.07 x10e6/uL (3.6-5.1); RED CELL DISTRIBUTION WIDTH 14.6 % (11.7-14.4); WHITE BLOOD COUNT 8.69 x10e3/uL (4.8-10.8)
[2023-02-25 07:04] LABS: ALBUMIN 2.5 g/dL (3.5-5.0); ALBUMIN/GLOBULIN RATIO 0.8 (0.8-2.0); ANION GAP 13.9 mmol/L (8-16); CALCIUM 7.6 mg/dL (8.4-10.2); CREATININE, SERUM 1.16 mg/dL (0.57-1.11); POTASSIUM 3.9 mmol/L (3.5-5.1)
[2023-02-25 09:00] LABS: FERRITIN 216.58 ng/mL (4.63-204.00)
[2023-02-25] MEDS: ISOSORBIDE MONONITRATE 30 MG TAB CR PO SCH (09:04)
[2023-02-25] MEDS: METOPROLOL SUCCINATE 25 MG TAB XL PO SCH (09:05)
[2023-02-25] MEDS: APIXAB 2.5 MG TABLET PO SCH ×2 (09:05→20:40)
[2023-02-25] MEDS: ATORVASTATIN 10 MG TAB PO SCH (09:06)
[2023-02-25] MEDS: CALCITRIOL 0.25 MCG CAP PO SCH (09:06)
[2023-02-25] MEDS: PANTOPRAZOLE SOD 40 MG TABEC PO SCH (09:06)
[2023-02-25] MEDS: REMDESIVIR 100MG 100 MG in SODIUM CHLORIDE 0.9% 100 ML IV SCH (16:57)
[2023-02-25] MEDS: BARICITINIB 2 MG TABLET PO SCH (17:01)
[2023-02-25] MEDS: GABAPENTIN 300 MG CAP PO SCH (17:01)
[2023-02-25] MEDS: DEXAMETHASONE SOD PHOS 10 MG/1 ML VIAL IV SCH (17:02)
[2023-02-25] MEDS: GABAPENTIN 400 MG CAP PO SCH (20:42)
[2023-02-25] MEDS: ROPINIROLE HCL 1 MG TAB PO SCH (20:42)
[2023-02-26] VITALS (9 sets, daily range): BP systolic 124–156; BP diastolic 69–83; PULSE 60–86; RESP 16–20; TEMP 97.7–98.1; O2SAT 96–100
[2023-02-26] MEDS: LEVOTHYROXINE SODIUM 112 MCG TAB PO SCH (05:31)
[2023-02-26 06:07] LABS: BASOPHILS % 0.2 % (0.0-1.0); HEMATOCRIT 28.2 % (34.2-44.1); HEMOGLOBIN 9.3 g/dL (12.0-16.0); LYMPHOCYTES # (AUTO) 1.1 (1.0-3.2); LYMPHOCYTES % 12.5 % (18.0-39.1); MEAN CORPUSCULAR HEMOGLOBIN 28.9 pg (28-32); MEAN CORPUSCULAR VOLUME 87.6 fL (81-99); MONOCYTES # (AUTO) 0.4 (0.2-0.8); MONOCYTES % 5.2 % (4.4-11.3); NEUTROPHILS # (AUTO) 6.9 (2.1-6.9); NEUTROPHILS % 81.3 % (38.7-80.0); PLATELET COUNT 225 x10e3/uL (140-360); RED BLOOD COUNT 3.22 x10e6/uL (3.6-5.1); WHITE BLOOD COUNT 8.45 x10e3/uL (4.8-10.8)
[2023-02-26 06:28] LABS: ANION GAP 14.4 mmol/L (8-16); CALCIUM 7.6 mg/dL (8.4-10.2); CREATININE, SERUM 1.2 mg/dL (0.57-1.11); POTASSIUM 4.4 mmol/L (3.5-5.1)
[2023-02-26] MEDS: CALCITRIOL 0.25 MCG CAP PO SCH (10:03)
[2023-02-26] MEDS: APIXAB 2.5 MG TABLET PO SCH ×2 (10:04→20:17)
[2023-02-26] MEDS: METOPROLOL SUCCINATE 25 MG TAB XL PO SCH (10:04)
[2023-02-26] MEDS: ISOSORBIDE MONONITRATE 30 MG TAB CR PO SCH (10:05)
[2023-02-26] MEDS: PANTOPRAZOLE SOD 40 MG TABEC PO SCH (10:06)
[2023-02-26] MEDS: ATORVASTATIN 10 MG TAB PO SCH (10:06)
[2023-02-26] MEDS: DEXAMETHASONE SOD PHOS 10 MG/1 ML VIAL IV SCH (18:26)
[2023-02-26] MEDS: BARICITINIB 2 MG TABLET PO SCH (18:26)
[2023-02-26] MEDS: REMDESIVIR 100MG 100 MG in SODIUM CHLORIDE 0.9% 100 ML IV SCH (18:26)
[2023-02-26] MEDS: GABAPENTIN 300 MG CAP PO SCH (18:26)
[2023-02-26] MEDS ORDERED: SODIUM CHLORIDE 0.9% 250ML 250 ML ONE (19:44)
[2023-02-26] MEDS: GABAPENTIN 400 MG CAP PO SCH (20:17)
[2023-02-26] MEDS: ROPINIROLE HCL 1 MG TAB PO SCH (20:17)
[2023-02-27] VITALS (11 sets, daily range): BP systolic 118–163; BP diastolic 67–85; PULSE 52–72; RESP 16–20; TEMP 97.6–98; O2SAT 95–100
[2023-02-27] MEDS: LEVOTHYROXINE SODIUM 112 MCG TAB PO SCH (05:44)
[2023-02-27] MEDS: ISOSORBIDE MONONITRATE 30 MG TAB CR PO SCH (09:16)
[2023-02-27] MEDS: PANTOPRAZOLE SOD 40 MG TABEC PO SCH (09:16)
[2023-02-27] MEDS: APIXAB 2.5 MG TABLET PO SCH ×2 (09:16→20:56)
[2023-02-27] MEDS: METOPROLOL SUCCINATE 25 MG TAB XL PO SCH (09:16)
[2023-02-27] MEDS: CALCITRIOL 0.25 MCG CAP PO SCH (09:16)
[2023-02-27] MEDS: ATORVASTATIN 10 MG TAB PO SCH (09:19)
[2023-02-27] MEDS ORDERED: ONDANSETRON HCL 4 MG ORAL DISINTEGRATING TAB PO PRN (13:30)
[2023-02-27] MEDS: AZITHROMYCIN 250 MG TAB PO SCH (14:28)
[2023-02-27] MEDS: ACETAMINOPHEN 325 MG TAB PO PRN (14:38)
[2023-02-27] MEDS: REMDESIVIR 100MG 100 MG in SODIUM CHLORIDE 0.9% 100 ML IV SCH (17:36)
[2023-02-27] MEDS: BARICITINIB 2 MG TABLET PO SCH (17:36)
[2023-02-27] MEDS: DEXAMETHASONE SOD PHOS 10 MG/1 ML VIAL IV SCH (17:36)
[2023-02-27] MEDS: CEFUROXIME AXETIL 250 MG TAB PO SCH (17:36)
[2023-02-27] MEDS: GABAPENTIN 300 MG CAP PO SCH (17:37)
[2023-02-27] MEDS: GABAPENTIN 400 MG CAP PO SCH (20:55)
[2023-02-27] MEDS: ROPINIROLE HCL 1 MG TAB PO SCH (20:56)
[2023-02-28] VITALS (8 sets, daily range): BP systolic 129–181; BP diastolic 75–85; PULSE 52–118; RESP 16–18; TEMP 97.5–98.8; O2SAT 94–100
[2023-02-28] MEDS: LEVOTHYROXINE SODIUM 112 MCG TAB PO SCH (05:40)
[2023-02-28 05:48] LABS: HEMATOCRIT 29.3 % (34.2-44.1); HEMOGLOBIN 10.3 g/dL (12.0-16.0); MEAN CORPUSCULAR HEMOGLOBIN 31.7 pg (28-32); MEAN CORPUSCULAR HGB CONC 35.2 g/dL (31-35); MEAN CORPUSCULAR VOLUME 90.2 fL (81-99); PLATELET COUNT 226 x10e3/uL (140-360); RED BLOOD COUNT 3.25 x10e6/uL (3.6-5.1); RED CELL DISTRIBUTION WIDTH 14.8 % (11.7-14.4); WHITE BLOOD COUNT 6.39 x10e3/uL (4.8-10.8)
[2023-02-28 06:09] LABS: ALBUMIN 2.6 g/dL (3.5-5.0); ALBUMIN/GLOBULIN RATIO 0.8 (0.8-2.0); ANION GAP 13.4 mmol/L (8-16); CALCIUM 7.7 mg/dL (8.4-10.2); CREATININE, SERUM 1.35 mg/dL (0.57-1.11); POTASSIUM 4.4 mmol/L (3.5-5.1)
[2023-02-28 09:19] LABS: EOSINOPHILS % (MANUAL) 1 % (0-7); LYMPHOCYTES % (MANUAL) 9 % (19-48); MONOCYTES % (MANUAL) 5 % (3.4-9.0); NEUTROPHILS % (MANUAL) 85 % (40-74); PLATELET ESTIMATE ADEQUATE; PLATELET MORPHOLOGY COMMENT NORMAL; RBC MORPHOLOGY COMMENT NORMAL
[2023-02-28] MEDS: ATORVASTATIN 10 MG TAB PO SCH (09:25)
[2023-02-28] MEDS: CEFUROXIME AXETIL 250 MG TAB PO SCH ×2 (09:25→16:50)
[2023-02-28] MEDS: CALCITRIOL 0.25 MCG CAP PO SCH (09:25)
[2023-02-28] MEDS: METOPROLOL SUCCINATE 25 MG TAB XL PO SCH (09:26)
[2023-02-28] MEDS: ISOSORBIDE MONONITRATE 30 MG TAB CR PO SCH (09:27)
[2023-02-28] MEDS: APIXAB 2.5 MG TABLET PO SCH ×2 (09:27→20:50)
[2023-02-28] MEDS: PANTOPRAZOLE SOD 40 MG TABEC PO SCH (09:27)
[2023-02-28] MEDS: AZITHROMYCIN 250 MG TAB PO SCH (09:27)
[2023-02-28] MEDS: BARICITINIB 2 MG TABLET PO SCH (16:49)
[2023-02-28] MEDS: REMDESIVIR 100MG 100 MG in SODIUM CHLORIDE 0.9% 100 ML IV SCH (16:49)
[2023-02-28] MEDS: DEXAMETHASONE SOD PHOS 10 MG/1 ML VIAL IV SCH (16:49)
[2023-02-28] MEDS: GABAPENTIN 300 MG CAP PO SCH (16:50)
[2023-02-28] MEDS: GABAPENTIN 400 MG CAP PO SCH (20:50)
[2023-02-28] MEDS: ROPINIROLE HCL 1 MG TAB PO SCH (20:50)
[2023-03-01 00:57] VITALS: BP 159/80; PULSE 54; RESP 16; TEMP 97.5; O2SAT 100
[2023-03-01] MEDS: LEVOTHYROXINE SODIUM 112 MCG TAB PO SCH (05:24)
[2023-03-01 05:28] VITALS: BP 157/86; PULSE 54; RESP 16; TEMP 98.6; O2SAT 98
[2023-03-01 06:54] VITALS: PULSE 62; RESP 18; O2SAT 96
[2023-03-01 07:15] VITALS: BP 157/86; PULSE 62; RESP 18; TEMP 98.6; O2SAT 96
[2023-03-01 08:28] VITALS: BP 170/80; PULSE 52; RESP 16; TEMP 97.3; O2SAT 100
[2023-03-01] MEDS: ISOSORBIDE MONONITRATE 30 MG TAB CR PO SCH (08:47)
[2023-03-01] MEDS: CALCITRIOL 0.25 MCG CAP PO SCH (08:49)
[2023-03-01] MEDS: PANTOPRAZOLE SOD 40 MG TABEC PO SCH (08:49)
[2023-03-01] MEDS: APIXAB 2.5 MG TABLET PO SCH (08:49)
[2023-03-01] MEDS: ATORVASTATIN 10 MG TAB PO SCH (08:49)
[2023-03-01] MEDS: METOPROLOL SUCCINATE 25 MG TAB XL PO SCH (08:50)
[2023-03-01] MEDS: CEFUROXIME AXETIL 250 MG TAB PO SCH (08:50)
[2023-03-01] MEDS ORDERED: CEPHALEXIN500 MG PO ×2 (10:59→11:10)
[2023-03-01] MEDS ORDERED: PREDNISONE20 MG PO (11:10)
[2023-03-01] MEDS ORDERED: ZITHROMAX500 MG PO (11:10)
[2023-03-01 12:01] VITALS: BP 152/85; PULSE 65; RESP 16; TEMP 97.5; O2SAT 100
== END 2023-03-01 13:21 | disposition home or self-care (01) | DRG 871 ==
LOC: ER 11:54 → ERHOLD 16:56 → MED/SURG3 20:06
PROVIDERS: ADMIT Internal Medicine; ATTEND Internal Medicine
PROC: XW043E5 Introduction of Remdesivir Anti-infective into Central Vein, Percutaneous Approach, New Technology Group 5 (ICD-10-PCS; principal; 2023-02-24)
PROC: 3E0433Z Introduction of Anti-inflammatory into Central Vein, Percutaneous Approach (ICD-10-PCS; 2023-02-24)
PROC: 3E04329 Introduction of Other Anti-infective into Central Vein, Percutaneous Approach (ICD-10-PCS; 2023-02-26)
DX: A41.9 Sepsis, unspecified organism (principal); I50.33 Acute on chronic diastolic (congestive) heart failure; U07.1 COVID-19; J12.82 Pneumonia due to coronavirus disease 2019; J96.01 Acute respiratory failure with hypoxia; J18.8 Other pneumonia, unspecified organism; N17.9 Acute kidney failure, unspecified; I13.0 Hypertensive heart and chronic kidney disease with heart failure and stage 1 through stage 4 chronic kidney disease, or unspecified chronic kidney disease; I48.20 Chronic atrial fibrillation, unspecified; N18.30 Chronic kidney disease, stage 3 unspecified; E66.01 Morbid (severe) obesity due to excess calories; Z68.39 Body mass index [BMI] 39.0-39.9, adult; I25.10 Atherosclerotic heart disease of native coronary artery without angina pectoris; K57.90 Diverticulosis of intestine, part unspecified, without perforation or abscess without bleeding; R53.1 Weakness; R59.0 Localized enlarged lymph nodes; K21.9 Gastro-esophageal reflux disease without esophagitis; E03.9 Hypothyroidism, unspecified; R53.81 Other malaise; G89.29 Other chronic pain; W01.0XXA Fall on same level from slipping, tripping and stumbling without subsequent striking against object, initial encounter; Y92.9 Unspecified place or not applicable; Z95.1 Presence of aortocoronary bypass graft; Z79.01 Long term (current) use of anticoagulants; Z79.899 Other long term (current) drug therapy; Z79.890 Hormone replacement therapy; Z79.82 Long term (current) use of aspirin
CPT/HCPCS: 36415; 70450; 71045; 71250; 72125; 80048; 80053; 81001; 82550; 82728; 83518; 83605; 83615; 83880; 84484; 85007; 85025; 85027; 85610; 85730; 86140; 87040; 87070; 87086; 87205; 87400; 93005; 93306; 94760; 94799; 99285; J0248; J0696; J1100; J2405; J2543; J7050; U0002